=== PATIENT | female | born 1945 | race Caucasian/White ===

== ENCOUNTER 2018-04-22 03:30 | Inpatient (IN) | payer MEDICARE, OTHER ==
[2018-04-22 04:16] LABS: #Eosinphils 0.3 thou/uL (0.0-0.7); #Lymphocytes 2.9 thou/uL (1.20-3.40); #Monocytes 0.8 thou/uL (0.11-0.59); #Neutrophils 7.5 thou/uL (1.40-6.50); %Basophils 0.3 % (0.0-1.0); %Eosinophils 2.8 % (0.0-10.0); %Lymphocytes 24.9 % (21.0-51.0); %Monocytes 6.9 % (0.0-10.0); %Neutrophils 65.1 % (42.0-75.0); Hemoglobin 13.9 g/dL (12.0-16.0); Mean Corpuscular HGB CONC 33.9 g/dL (32.0-36.0); Mean Corpuscular Volume 88.4 fL (78.0-98.0); Mean Platelet Volume 7.7 fL (7.4-10.4); Platelet Count 274 thou/uL (130-400); RBC Distribution Width 12.1 % (11.5-14.5); Red Blood Cell (RBC) Count 4.63 mill/uL (4.20-5.40); White Blood Cell (WBC) Count 11.6 thou/uL (4.8-10.8)
[2018-04-22 04:35] LABS: ALT (SGPT) 19 U/L (8-55); AST (SGOT) 22 U/L (5-34); Albumin 3.6 g/dL (3.4-4.8); Alkaline Phosphatase 90 U/L (40-150); Anion Gap 19 mmol/L (10-20); BUN (Urea Nitrogen) 14 mg/dL (9.8-20.1); Bilirubin, Total 0.3 mg/dL (0.2-1.2); Calc. Creatinine Clearance 0 mL/min (70-130); Calcium 9.2 mg/dL (7.8-10.44); Carbon Dioxide 17 mmol/L (23-31); Chloride 106 mmol/L (98-107); Estimated GFR-MDRD 30; Globulin 3.5 g/dL (2.4-3.5); Glucose 179 mg/dL (83-110); Potassium 3.6 mmol/L (3.5-5.1); Protein, Total 7.1 g/dL (6.0-8.3); Sodium 138 mmol/L (136-145)
[2018-04-22 04:59] LABS: CKMB 2.5 ng/mL (0-6.6)
[2018-04-22 05:14] LABS: Bilirubin Negative (Negative); Blood, Urine Negative (Negative); Clarity CLOUDY (Clear); Glucose, Urine (Dipstick) Negative (Negative); Leukocyte Negative (Negative); Nitrite Negative (Negative); Protein, Urine (Dipstick) Negative (Neg-Trace); Specific Gravity, Urine 1.015 (1.002-1.036); Urobilinogen 0.2 mg/dL (0.2-1.0)
[2018-04-22] MEDS ORDERED: Clindamycin/D5W 600 mg/50 ml Premix Bag ONE (06:01)
[2018-04-22] MEDS ORDERED: Piperacillin/Tazobactam 3.375 GM in Sodium Chloride 0.9% 100 ML IVPB SCH (07:30)
[2018-04-22 07:36] VITALS: BMI 29.9
[2018-04-22 08:40] LABS: Critical Call Chem Troponin I RESULT DECREASING; Troponin I 1.127 ng/mL (< 0.028)
[2018-04-22] MEDS ORDERED: Acetaminophen 325 MG TAB PO PRN (09:14)
[2018-04-22] MEDS ORDERED: Ondansetron ODT 4 MG TAB PO PRN (09:14)
[2018-04-22] MEDS ORDERED: Lactated Ringer's 500 ML IV SCH (09:30)
[2018-04-22] MEDS ORDERED: Metamucil PACK PO SCH (09:30)
[2018-04-22 09:47] LABS: CKMB 5.4 ng/mL (0-6.6)
--- NOTE | 2018-04-22 09:51 | CT ---
PRELIMINARY REPORT/[facility]/EMERGENTY AFTER-HOURS PROCEDURE CT Head Without Contrast EXAM DATE/TIME: 04/22/2018 4:05 AM CLINICAL HISTORY: 72 years old, female; Injury or trauma and signs and symptoms; Fall; Initial encounter; Abrasion; Not specified; Dizziness; Patient HX: Patient brought in by ems for dizziness, started tonight when caitlin ent got up. Patient fell out of bed however no loss of consciousness nor did patient hit head. Patien t has had similar episodes in the past. TECHNIQUE: Axial computed tomography images of the head/brain without contrast. COMPARISON: No relevant prior studies available. FINDINGS: Brain: No intracranial hemorrhage. Left basal ganglia low attenuation/old lacunar infarct. Periventri cular and subcortical areas of low attenuation, probably related to chronic small vessel ischemic dis ease. Please note that these areas of low-attenuation may obscure small acute infarctions and MRI wou ld be more sensitive in the evaluation of acute infarction if indicated. Prominence of the sulci and ventricular system consistent with age related volume loss. Ventricles: No acute findings. Bones/joints: No acute fracture. Sinuses: Left frontal sinus opacification. Left maxillary sinus mucosal thickening. Mastoid air cells: No acute findings. No mastoid effusion. Soft tissues: No acute findings. IMPRESSION: No definite acute intracranial findings. Cerebral atrophy, probable small vessel ischemic disease and old lacunar infarct described above. Paranasal sinus disease. Thank you for allowing us to participate in the care of your patient. Dictated and Authenticated by: Marcelino Godfrey MD 04/22/2018 6:58 AM Central Time ([place] & [place]) FINAL REPORT EMERGENT AFTER HOURS NONCONTRAST CT HEAD: DATE: 04/22/2018. HISTORY: Dizziness. The patient fell out of bed. COMPARISON: 11/20/2012. FINDINGS: There are low-density foci seen adjacent to the head of the left caudate as well as in the adjacent l eft basal ganglia. There is associated ex vacuo dilatation of the anterior horn left lateral ventric le, and findings are likely related to remote lacunar infarctions involving the left basal ganglia. These areas of infarction were not present on the study in 2012. There are a few scattered low-density areas within the periventricular and subcortical white matter g reater in the right anterior frontal lobe centrum semiovale which are nonspecific but likely attribut able to chronic small-vessel ischemic changes which have also progressed from prior exam. There is n o evidence of a hemorrhage, acute infarction, mass effect, or midline shift. Mucosal thickening is p resent in the left maxillary antrum with opacification of the left frontal sinus which was noted on t he prior exam. No other interval change. IMPRESSION: 1. No acute intracranial abnormality demonstrated. 2. Findings likely attributable to remote lacunar infarctions in the left basal ganglia. 3. Chronic small-vessel ischemic changes. MRI would be a more sensitive study of choice for evaluat ion of a more acute infarction. 4. Mild cerebral volume loss. 5. Sinus disease. 6. Findings are in agreement with the preliminary report by [facility]. POS: [facility]
--- NOTE | 2018-04-22 10:06 | RAD ---
CHEST ONE VIEW: History: Chest pain. Comparison: 01-28-18 FINDINGS: Cardiac silhouette is magnified by projection. Pulmonary vasculature is unremarkable. Mediastinum is midline. No lobar consolidation or evidence of pneumothorax. Post-operative changes right shoulder. C ardiac monitor leads overlie the chest. IMPRESSION: No active cardiopulmonary abnormalities are demonstrated. POS: [facility]
[2018-04-22 10:37] LABS: Lactic Acid 2.9 mmol/L (0.5-2.2)
[2018-04-22 10:51] LABS: Troponin I 1.147 ng/mL (< 0.028)
--- NOTE | 2018-04-22 11:48 | RAD ---
LEFT FOOT 3 VIEWS: HISTORY: Fall. Left foot injury. Diabetic ulcer. FINDINGS: No gross Lisfranc malalignment. Reversal of the plantar arch on the lateral view. Osseous structure s severely demineralized. No displaced fractures or aggressive osseous destruction are apparent. IMPRESSION: 1. Severe chronic deformity including reversal of the plantar arch. No aggressive osseous destructi on is apparent. 2. Osteoporosis. POS: [facility]
--- NOTE | 2018-04-22 14:10 | CON ---
DATE OF CONSULTATION: REASON FOR CONSULTATION: Elevated troponin. PRIMARY ARCHITECTURAL ENGINEER: None. HISTORY OF PRESENT ILLNESS: Ms. Crowley is a 72-year-old woman, no previous history of underlying coronary artery disease. Risk factors include diabetes mellitus and hypertension. She recently states she awoke at 3:00 in the morning. When she teresa, she had a dizzy spell. She states she went down to the floor. She is on the floor for about 30 minutes. She had difficulty getting up. No chest pain, pressure, shortness of breath, or other associated symptoms. EMS was summoned. She was seen and evaluated in the emergency room, where a troponin was drawn. Troponin was elevated. She has no current symptoms suggesting angina. PAST MEDICAL HISTORY: Diabetes mellitus, hypertension, knee surgery, elbow surgery, appendectomy, hysterectomy, tonsillectomy, bipolar disorder. ALLERGIES: IBUPROFEN. HOME MEDICATIONS: None. SOCIAL HISTORY: No current tobacco or alcohol use. She is very limited from an ambulation standpoint. She has a decubitus ulcer present in addition to a diabetic foot ulcer. REVIEW OF SYMPTOMS: A 10-point review of systems is reviewed and as above, otherwise negative. PHYSICAL EXAMINATION: VITAL SIGNS: Blood pressure 150/65, pulse 82, temperature 96.5. GENERAL: Patient is a pleasant female, who is in no acute distress. The patient appears their stated age. NEUROLOGIC: The patient is alert and oriented x3 with no focal neurologic deficits. HEENT: Sclerae without icterus. Mouth has moist mucous membranes with normal pallor. NECK: No JVD. Carotid upstroke brisk. No bruits bilaterally. LUNGS: Clear to auscultation with unlabored respirations. BACK: No scoliosis or kyphosis. CARDIAC: Regular rate and rhythm with normal S1 and S2. No S3 or S4 noted. No significant rubs, murmurs, thrills, or gallops noted throughout the precordium. PMI is not displaced. There is no parasternal heave. ABDOMEN: Soft, nontender, nondistended. No peritoneal signs present. No hepatosplenomegaly. No abnormal striae. EXTREMITIES: 2+ femoral and 2+ dorsalis pedis pulses. No cyanosis, clubbing, or edema. Left lower extremity with a diabetic foot ulcer, although appropriate pulses present. SKIN: No gross abnormalities. IMAGING STUDIES: EKG showed normal sinus rhythm, ST-T wave changes suggesting LVH. PERTINENT LABORATORY DATA: Peak troponin 1.147. C-reactive protein 0.64. Lactic acid level 3.6, which is down to 2.9. IMPRESSION: 1. Elevated troponin. 2. Dizziness. 3. Diabetic foot ulcer. 4. Diabetes mellitus. 5. Hypertension. RECOMMENDATIONS: Certainly complicated situation. This does not appear to be a situation where the patient has had unstable angina. The patient did have increased heart rate noted in the emergency room and we will investigate. I discussed proceeding with coronary angiography versus noninvasive stress study versus medical therapy. I discussed coronary angiography in full detail. Risks include, but not limited to . All questions were answered the patient would like to discuss with her on how they would like to proceed. If she did in fact have atrial fibrillation or significant tachycardia with heart rate of 160, this is likely due to underlying demand ischemia. She is currently on vancomycin for her foot ulcer. Job ID: [id number]
[2018-04-22 15:56] LABS: Lactic Acid 2.4 mmol/L (0.5-2.2)
--- NOTE | 2018-04-22 16:01 | HP ---
PRIMARY CARE PHYSICIAN: Bola Rutherford MD CHIEF COMPLAINT/REASON FOR ADMISSION: "I felt dizzy." HISTORY OF PRESENT ILLNESS: Ms. Crowley is a 72-year-old female, with a history of type 2 diabetes with diabetic polyneuropathy, as well as essential hypertension and bipolar disorder, presenting to the hospital and transferred from her home in the earlier hours of this morning. She has been felling well at home, no chest pain, no fever, no cough or congestion, "eating wonderfully." She woke at 3:00 a.m. and had to go to the bathroom. She became dizzy and fell. She believe she may have passed out but is unsure. She noticed that her bottom this morning is very sore from falling. Her was unable to get her up. EMS was called. Initially, the patient declined transport to the hospital, however, she sat on the side of her bed with the ambulance crew waiting, she noted the room began spinning. She has had similar symptoms in the past, which have been self-limited. She accepted transportation and was brought to the emergency department. In the emergency department, laboratory evaluation was performed, she was noted to have a mild metabolic acidosis with a bicarbonate of 17, glucose was 179, lactic acid elevated at 3.6. Initial troponin abnormal at 1.198, and C-reactive protein also slightly elevated at 0.64. She was subsequently admitted to the telemetry floor was additional evaluation and care. Additionally, she underwent CT scanning of the brain, chest x-ray and foot x-ray. Final reports are pending, the data available for review indicates no significant pathology on these studies. At the time of my evaluation, Ms. Crowley states she is feeling much better. Her dizziness had resolved. She denies any chest pain or chest pressure at any time. She states her will bring her medications in a little while. When asked about her usual activities of daily living, she uses a walker at home, is able to toilet independently. She uses a shower chair. Her does the cooking and arranges her medications. She has a history of a chronic diabetic foot ulcer, followed by Dr. Virk. She saw Dr. Virk about 2 week ago, he cleaned and dressed the wound. The wound has been present from years. It has been stable. She sees Dr. Virk about every 6 weeks. She does state she does not drink enough water at home, but has had no difficulty with food. No nausea, vomiting, or other associated symptomatology whatsoever. PAST MEDICAL HISTORY: 1. Type 2 diabetes with diabetic peripheral neuropathy. 2. Chronic constipation, on daily Metamucil. 3. Essential hypertension. 4. Bipolar disorder. No history of heart disease, stroke, or other acute symptomatology. PAST SURGICAL HISTORY: 1. Right elbow surgery. 2. Left knee total joint replacement. 3. Appendectomy. 4. Hysterectomy. 5. Tonsillectomy. SOCIAL HISTORY: The patient does not use alcohol, illicit drugs, no tobacco use currently or in the past. She lives at home with her . She uses a walker for ambulation. FAMILY HISTORY: The patient is adopted. She does have some information about her father's parents, which will be her paternal grandmother, with a history of heart condition, not other specified. MEDICATIONS: At this time, she is unsure of her medications, her will bring them. She does not currently have an aspirin regimen. ALLERGIES: SIDE EFFECTS REPORTS TO IBUPROFEN, THOUGH THE PATIENT IS UNCLEAR ON WHAT THOSE WERE, THIS HAPPENED IN THE DISTANT PAST. REVIEW OF SYSTEMS: Complete review of system reviewed, addressed, negative except otherwise as mentioned. PHYSICAL EXAMINATION: VITAL SIGNS: In the ER, blood pressure 149/60, pulse 80, respiratory rate 16, temperature 97.4, and saturating 98% on room air. Current vital signs on the telemetry floor; blood pressure 140/72, heart rate 79, temperature 96.2, respiratory rate 18, and saturating 99% on room air. GENERAL: Pleasant female, sitting up, able to give a fair history. HEENT: Eyes are without conjunctival injection or scleral icterus. Extraocular movements are intact. Oropharynx is clear. No erythema. No exudate. NECK: Supple. Full range of motion. No jugular venous distention. HEART: Regular rate and rhythm. No distinct murmur, rub, or gallop. LUNGS: Clear to auscultation bilaterally. ABDOMEN: Soft, nontender, and nondistended. EXTREMITIES: Without clubbing, cyanosis, or edema. Hammertoe is present bilateral feet. SKIN: Notable for onychomycosis in bilateral nailbeds of the feet. Left foot plantar surface silver dollar size ulceration with eschar. No surrounding erythema or warmth. Skin with diffuse dryness. MUSCULOSKELETAL: Foot deformity/hammertoe as above. NEUROLOGIC: She is able to move all extremities bilaterally to command. No focal deficit. She does have decreased proprioception of her feet on sensory exam. LABORATORY/DATA REVIEW: I personally reviewed her EKG, which was at 3:40 this morning, normal sinus rhythm, 84 beats per minute, mild left ventricular hypertrophy, possible previous inferior infarct noted. No ST/T-wave changes. I personally reviewed her chest x-ray. No distinct effusion, infiltrate. Mildly elevated right hemidiaphragm. CT of brain noncontrast, report is pending, no obvious acute intracranial abnormality present. Plain x-rays of the foot were also taken, again no distinct abnormality. Serum carbon dioxide level is 17, creatinine is 1.6, BUN of 14, glucose 179. CRP 0.64. Troponin 1.198. Lactic acid 3.6. White blood cell count minimally elevated at 11.6, hemoglobin 13.9, hematocrit 40.9, platelet count of 274. Urinalysis reviewed, unremarkable. IMPRESSION: 1. Abnormal cardiac biomarker, compatible with non-ST elevation myocardial infarction. 2. Background history of type 2 diabetes with diabetic polyneuropathy. 3. Essential hypertension. 4. Bipolar disorder. 5. Chronic constipation. 6. Chronic stable left plantar ulceration, no evidence of acute change or inflammatory source. PLAN/RECOMMENDATIONS: 1. Cardiology - echo, cardiac biomarkers. Add daily aspirin to regimen. Unsure at this time of her home medication list, thus I am unsure if she takes a statin. We will initiate statin therapy and adjust once this additional information is available. Check 2D echocardiogram. Request Cardiology input. The patient has already eaten breakfast this morning. Generally, the patient appears very stable. 2. Endocrine - correctional insulin sliding scale, await her home medicine list. 3. Initiate walking program to prevent deconditioning during hospital stay. 4. Infectious Disease - repeat labs this afternoon to include repeat lactic acid level and basic metabolic panel. Metabolic acidosis noted, though without clinical signs or symptoms pointing to distinct infection. Empiric vancomycin and Zosyn were provided from the emergency department and blood cultures were sent. If blood cultures remain negative over the next 12 to 24 hours, discontinue antibiotic therapy altogether. That infectious source of chronic plantar diabetic wound. Repeat labs ordered at 3:00 p.m. to recheck lactic acid level as well as basic metabolic panel. 5. DVT prophylaxis - Lovenox. 6. Reconciliation of home medications from list available. 7. Given her age and comorbidities, she is at high risk. Expectation for hospital stay to cross 2 midnights, admit to full inpatient status. Further recommendations pending hospital course. Job ID: [id number]
[2018-04-22 16:02] LABS: Anion Gap 16 mmol/L (10-20); BUN (Urea Nitrogen) 13 mg/dL (9.8-20.1); Calc. Creatinine Clearance 50 mL/min (70-130); Calcium 9.2 mg/dL (7.8-10.44); Carbon Dioxide 19 mmol/L (23-31); Chloride 108 mmol/L (98-107); Estimated GFR-MDRD 35; Glucose 161 mg/dL (83-110); Potassium 3.9 mmol/L (3.5-5.1); Sodium 139 mmol/L (136-145)
[2018-04-22 16:07] LABS: Troponin I 1.197 ng/mL (< 0.028)
[2018-04-22] MEDS ORDERED: Communication Order-Pharmacy FS SCH (17:30)
[2018-04-22] MEDS: Sodium Chloride 0.9% 1,000 ML IV SCH (18:04)
[2018-04-22] MEDS: Donepezil HCl 5 MG TAB PO SCH (20:58)
[2018-04-22] MEDS: Metoprolol Tartrate 25 MG TAB PO SCH (20:58)
[2018-04-22] MEDS: risperiDONE 0.25 MG TAB PO SCH (20:58)
[2018-04-22] MEDS: Atorvastatin Calcium 40 MG TAB PO SCH (20:58)
[2018-04-22] MEDS: traZODone HCl 150 MG TAB PO SCH (20:59)
[2018-04-23] MEDS: Sodium Chloride 0.9% 1,000 ML IV SCH ×5 (03:34→21:28)
[2018-04-23] MEDS: Levothyroxine Sodium 125 MCG TAB PO SCH (05:25)
[2018-04-23] MEDS: Amlodipine 5 MG TAB PO SCH (05:25)
[2018-04-23] MEDS: Oxybutynin 5 MG TAB PO SCH (05:26)
[2018-04-23] MEDS: Metoprolol Tartrate 25 MG TAB PO SCH ×2 (05:26→21:20)
[2018-04-23] MEDS: Aspirin 81 mg Enteric Coated Tablet PO SCH (05:26)
[2018-04-23 06:04] LABS: Lactic Acid 2.1 mmol/L (0.5-2.2)
[2018-04-23 07:26] LABS: #Eosinphils 0.3 thou/uL (0.0-0.7); #Lymphocytes 1.9 thou/uL (1.20-3.40); #Neutrophils 7.6 thou/uL (1.40-6.50); %Basophils 0.4 % (0.0-1.0); %Eosinophils 2.4 % (0.0-10.0); %Lymphocytes 17.6 % (21.0-51.0); %Neutrophils 70.6 % (42.0-75.0); Mean Corpuscular HGB CONC 32.9 g/dL (32.0-36.0); Mean Corpuscular Hemoglobin 28.9 pg (27.0-31.0); Mean Corpuscular Volume 87.8 fL (78.0-98.0); Mean Platelet Volume 8.2 fL (7.4-10.4); Platelet Count 250 thou/uL (130-400); RBC Distribution Width 12.3 % (11.5-14.5); Red Blood Cell (RBC) Count 4.52 mill/uL (4.20-5.40); White Blood Cell (WBC) Count 10.8 thou/uL (4.8-10.8)
[2018-04-23 07:34] LABS: ALT (SGPT) 22 U/L (8-55); AST (SGOT) 32 U/L (5-34); Albumin 3.3 g/dL (3.4-4.8); Alkaline Phosphatase 84 U/L (40-150); Anion Gap 15 mmol/L (10-20); BUN (Urea Nitrogen) 13 mg/dL (9.8-20.1); Bilirubin, Total 0.5 mg/dL (0.2-1.2); Calc. Creatinine Clearance 57 mL/min (70-130); Calcium 8.9 mg/dL (7.8-10.44); Carbon Dioxide 19 mmol/L (23-31); Chloride 108 mmol/L (98-107); Cholesterol 151 mg/dl (< 200 Desired); Estimated GFR-MDRD 41; Globulin 3.1 g/dL (2.4-3.5); Glucose 132 mg/dL (83-110); HDL Cholesterol 50 mg/dL (>60 Neg Risk); LDL Cholesterol, Calculated 81 mg/dL; Potassium 3.9 mmol/L (3.5-5.1); Protein, Total 6.4 g/dL (6.0-8.3); Sodium 138 mmol/L (136-145); Triglycerides 99 mg/dL (Less than 150)
[2018-04-23] MEDS: Metamucil PACK PO SCH (08:17)
[2018-04-23] MEDS ORDERED: Enoxaparin Sodium 40 MG/0.4 ML SYRINGE SC SCH (09:00)
[2018-04-23] MEDS ORDERED: Vancomycin HCl 1 GM in Premix Bag 1 BAG IVPB SCH (09:00)
[2018-04-23] MEDS ORDERED: VANCOMYCIN IVPB PRN (09:05)
[2018-04-23] MEDS ORDERED: Nitroglycerin 100MG/250ML BOT 0 ML ONE (09:41)
[2018-04-23] MEDS ORDERED: Heparin 10,000 UNITS/1 ML VIAL ONE (09:41)
[2018-04-23] MEDS ORDERED: Verapamil 5 MG/2 ML VIAL ONE (09:41)
[2018-04-23] MEDS ORDERED: Vancomycin HCl 1.5 GM in Sodium Chloride 0.9% 250 ML 300 ML IVPB SCH ×2 (10:00→22:00)
[2018-04-23] MEDS ORDERED: Nitroglycerin 0.4 MG TAB (25 Tab Bottle) SL PRN (10:47)
[2018-04-23] MEDS ORDERED: traMADol HCl 50 MG TAB PO PRN (10:47)
[2018-04-23] MEDS ORDERED: Acetaminophen/Codeine 30-300mg Tablet PO PRN ×2 (10:47)
[2018-04-23] MEDS ORDERED: hydrALAZINE 20 MG/ML VIAL ONE (10:49)
[2018-04-23] MEDS ORDERED: Sodium Chloride 0.9% 200 ML IV SCH (11:00)
[2018-04-23] MEDS ORDERED: Iopamidol 370 76% 100 ML VIAL ONE (12:12)
--- NOTE | 2018-04-23 13:02 | PDOC.PN ---
- Subjective Encounter Start Date: 04/23/18 Encounter Start Time: 10:00 Subjective: no chest pain or sob -: is going for cath now - Objective Resuscitation Status - Order Detail: 04/22/18 09:14 Resuscitation Status Routine Resuscitation Status: FULL: Full Resuscitation Discussed with: lindsay SON Reviewed: Yes Vital Signs & Weight: Vital Signs (12 hours) Temp Pulse Resp BP BP Pulse Ox 04/23/18 07:35 98 F 71 20 187/76 H 98 04/23/18 05:25 80 183/74 H 04/23/18 04:00 97.7 F 80 16 183/74 H 95 Weight Admit Weight 197 lb Weight 194 lb 12.8 oz I&O: 04/22/18 04/23/18 04/24/18 06:59 06:59 06:59 Intake Total 3278 Output Total 2750 Balance 528 Result Diagrams: 04/23/18 06:45 04/23/18 06:45 Additional Labs: Accuchecks 04/23/18 04/22/18 04/22/18 05:12 20:24 17:01 POC Glucose 133 H 109 125 H Phys Exam - Physical Examination HEENT: PERRLA, moist MMs Neck: no JVD, supple Respiratory: no wheezing, no rales Cardiovascular: RRR, no significant murmur Gastrointestinal: soft, non-tender, positive bowel sounds Musculoskeletal: no edema, pulses present Neurological: non-focal, moves all 4 limbs Psychiatric: normal affect, A&O x 3 Dx/Plan (1) Sepsis Code(s): A41.9 - SEPSIS, UNSPECIFIED ORGANISM Status: Acute Qualifiers: Sepsis type: sepsis due to unspecified organism Qualified Code(s): A41.9 - Sepsis, unspecified organism (2) Bacteremia Code(s): R78.81 - BACTEREMIA Status: Suspected (3) UTI (urinary tract infection) Status: Acute Qualifiers: Urinary tract infection type: acute cystitis Hematuria presence: without hematuria Qualified Code(s): N30.00 - Acute cystitis without hematuria (4) Demand ischemia of myocardium Code(s): I24.8 - OTHER FORMS OF ACUTE ISCHEMIC HEART DISEASE Status: Acute (5) DM type 2 (diabetes mellitus, type 2) Status: Chronic Qualifiers: Diabetes mellitus fdc insulin use: 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 Diabetes mellitus complication status: with unspecified complications Qualified Code(s) : E11.8 - Type 2 diabetes mellitus with unspecified complications (6) LIBORIO (acute kidney injury) Code(s): N17.9 - ACUTE KIDNEY FAILURE, UNSPECIFIED Status: Acute (7) Metabolic acidosis Code(s): E87.2 - ACIDOSIS Status: Acute (8) chronic left foot diabetic ulcer Status: Chronic (9) h/o old cva Status: Chronic Comment: old lacunar infarct left basal ganglia (10) Bipolar disease, chronic Code(s): F31.9 - BIPOLAR DISORDER, UNSPECIFIED Status: Chronic (11) Dementia Code(s): F03.90 - UNSPECIFIED DEMENTIA WITHOUT BEHAVIORAL DISTURBANCE Status: Chronic Qualifiers: Dementia type: Alzheimer's disease Alzheimer's disease onset: unspecified onset Dementia behavioral disturbance: without behavioral disturbance Qualified Code(s): G30.9 - Alzheimer's disease, unspecified; F02.80 - Dementia in other diseases classified elsewhere without behavioral disturbance - Plan for cath today -: await full blood cs, 1 of 2 is growing gm+cocci ?contamination -: is on vanc and levaquin -: continue norvasc, lopressor, synthroid, asp, lipitor and aricept -: to ambulate as tolerated, wound care for the foot ulcer * . Review of Systems - Medications/Allergies Allergies/Adverse Reactions: Allergies Allergy/AdvReac Type Severity Reaction Status Date / Time No Known Allergies Allergy Verified 04/23/18 03:56 Medications: Current Medications Acetaminophen (Tylenol) 650 mg PO Q4H PRN PRN Reason: Headache/Fever/Mild Pain (1-3) Acetaminophen/Codeine Phosphate (Tylenol #3) 1 tab PO Q4H PRN PRN Reason: Mild Pain (1-3) Acetaminophen/Codeine Phosphate (Tylenol #3) 2 tab PO Q4H PRN PRN Reason: Moderate Pain (4-6) Amlodipine Besylate (Norvasc) 5 mg PO DAILY [facility] Last Admin: 04/23/18 05:25 Dose: 5 mg Aspirin (Ecotrin) 81 mg PO DAILY [facility] Last Admin: 04/23/18 05:26 Dose: 81 mg Atorvastatin Calcium (Lipitor) 40 mg PO HS [facility] Last Admin: 04/22/18 20:58 Dose: 40 mg Cholecalciferol (Vitamin D3) 4,000 units PO 1200 [facility] Donepezil HCl (Aricept) 5 mg PO HS [facility] Last Admin: 04/22/18 20:58 Dose: 5 mg Estrogens Conjugated (Premarin) 0.625 mg PO DAILY [facility] Last Admin: 04/23/18 05:26 Dose: 0.625 mg Sodium Chloride (Normal Saline 0.9%) 1,000 mls @ 100 mls/hr IV .Q10H [facility] Last Admin: 04/23/18 03:34 Dose: 1,000 mls Levofloxacin 500 mg/ Device 100 mls @ 100 mls/hr IVPB 0900 [facility] Vancomycin HCl 1.5 gm/ Sodium (Chloride) 300 mls @ 200 mls/hr IVPB 1000 [facility] Sodium Chloride (Normal Saline 0.9%) 1,000 mls @ 125 mls/hr IV .Q8H [facility] Stop: 04/23/18 19:01 Sodium Chloride (Normal Saline 0.9%) 200 mls @ 0 mls/hr IV ONE [facility] Stop: 04/23/18 23:00 Levothyroxine Sodium (Synthroid) 125 mcg PO 0600 [facility] Last Admin: 04/23/18 05:25 Dose: 125 mcg Metoprolol Tartrate (Lopressor) 12.5 mg PO BID [facility] Last Admin: 04/23/18 05:26 Dose: 12.5 mg Miscellaneous Information (Communication Order-Pharmacy) 0 each FS ONE [facility] Stop: 04/23/18 17:31 Miscellaneous Medication (Pharmacy To Dose) 1 each IVPB PRN PRN PRN Reason: Pharmacy to dose Nitroglycerin (Nitrostat) 0.4 mg SL Q5MIN PRN PRN Reason: Chest Pain Ondansetron HCl (Zofran Odt) 4 mg PO Q6H PRN PRN Reason: Nausea/Vomiting Oxybutynin Chloride (Ditropan) 5 mg PO DAILY [facility] Last Admin: 04/23/18 05:26 Dose: 5 mg Psyllium Hydrophilic Mucilloid (Metamucil) 1 pk PO DAILY [facility] Last Admin: 04/23/18 08:17 Dose: Not Given Risperidone (Risperidone) 0.5 mg PO HS [facility] Last Admin: 04/22/18 20:58 Dose: 0.5 mg Sodium Chloride (Flush - Normal Saline) 10 ml IVF Q12HR [facility] Last Admin: 04/22/18 20:59 Dose: Not Given Sodium Chloride (Flush - Normal Saline) 10 ml IVF PRN PRN PRN Reason: Saline Flush Tramadol HCl (Ultram) 50 mg PO Q6H PRN PRN Reason: Moderate Pain (4-6) Trazodone HCl (Desyrel) 150 mg PO HS [facility] Last Admin: 04/22/18 20:59 Dose: 150 mg
[2018-04-23] MEDS: risperiDONE 0.25 MG TAB PO SCH (21:19)
[2018-04-23] MEDS: Atorvastatin Calcium 40 MG TAB PO SCH (21:19)
[2018-04-23] MEDS: Donepezil HCl 5 MG TAB PO SCH (21:20)
[2018-04-23] MEDS: traZODone HCl 150 MG TAB PO SCH (21:20)
[2018-04-24] MEDS: Levothyroxine Sodium 125 MCG TAB PO SCH (05:13)
[2018-04-24] MEDS: Aspirin 81 mg Enteric Coated Tablet PO SCH (08:21)
[2018-04-24] MEDS: Amlodipine 5 MG TAB PO SCH (08:21)
[2018-04-24] MEDS: Oxybutynin 5 MG TAB PO SCH (08:22)
[2018-04-24] MEDS: Metoprolol Tartrate 25 MG TAB PO SCH (08:22)
[2018-04-24] MEDS: Metamucil PACK PO SCH (10:20)
[2018-04-24] MEDS: Sodium Chloride 0.9% 1,000 ML IV SCH (10:20)
--- NOTE | 2018-04-24 10:32 | PDOC.PN ---
- Subjective Encounter Start Date: 04/24/18 Encounter Start Time: 08:30 Subjective: no sob or chest pain -: feels good - Objective Resuscitation Status - Order Detail: 04/22/18 09:14 Resuscitation Status Routine Resuscitation Status: FULL: Full Resuscitation Discussed with: lindsay SON Reviewed: Yes Vital Signs & Weight: Vital Signs (12 hours) Temp Pulse Resp BP Pulse Ox 04/24/18 08:22 95 04/24/18 08:20 97.8 F 68 18 173/72 H 95 04/24/18 04:00 97.7 F 80 16 160/71 H 95 Weight Admit Weight 197 lb Weight 201 lb 12.8 oz I&O: 04/23/18 04/24/18 04/25/18 06:59 06:59 06:59 Intake Total 3278 1200 Output Total 2750 Balance 528 1200 Result Diagrams: 04/23/18 06:45 04/23/18 06:45 Additional Labs: Accuchecks 04/24/18 04/23/18 04/23/18 05:29 20:48 16:28 POC Glucose 119 H 148 H 100 Phys Exam - Physical Examination HEENT: PERRLA, moist MMs Neck: no JVD, supple Respiratory: no wheezing, no rales Cardiovascular: RRR, no significant murmur Gastrointestinal: soft, non-tender, positive bowel sounds Musculoskeletal: no edema, pulses present Neurological: non-focal, moves all 4 limbs Psychiatric: A&O x 3 Dx/Plan (1) Sepsis Code(s): A41.9 - SEPSIS, UNSPECIFIED ORGANISM Status: Acute Qualifiers: Sepsis type: Escherichia coli Qualified Code(s): A41.51 - Sepsis due to Escherichia coli [E. 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 insulin use: without chief transfer and pumphouse operator use Diabetes mellitus complication status: with unspecified complications Qualified Code(s) : E11.8 - Type 2 diabetes mellitus with unspecified complications (5) LIBORIO (acute kidney injury) Code(s): N17.9 - ACUTE KIDNEY FAILURE, UNSPECIFIED Status: Resolved (6) Metabolic acidosis Code(s): E87.2 - ACIDOSIS Status: Resolved (7) chronic left foot diabetic ulcer Status: Chronic (8) h/o old cva Status: Chronic Comment: old lacunar infarct left basal ganglia (9) Bipolar disease, chronic Code(s): F31.9 - BIPOLAR DISORDER, UNSPECIFIED Status: Chronic (10) Dementia Code(s): F03.90 - UNSPECIFIED DEMENTIA WITHOUT BEHAVIORAL DISTURBANCE Status: Chronic Qualifiers: Dementia type: Alzheimer's disease Alzheimer's disease onset: unspecified onset Dementia behavioral disturbance: without behavioral disturbance Qualified Code(s): G30.9 - Alzheimer's disease, unspecified; F02.80 - Dementia in other diseases classified elsewhere without behavioral disturbance - Plan hemostable -: cipro x 4 days -: has refused PT inhouse and as outpt, wants to go home -: asp, toprol, lisinopril, to f/u with PCP in 1 week * .
[2018-04-24 12:19] VITALS: BP 183/77; TEMP 98.2
--- NOTE | 2018-04-24 13:34 | DIS ---
DATE OF ADMISSION: 04/22/2018 DATE OF DISCHARGE: 04/24/2018 DISCHARGE DISPOSITION: To home. PRIMARY DISCHARGE DIAGNOSES: Sepsis with urinary tract infection, resolving; demand ischemia; [id number] coronary artery disease on cardiac cath. 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 PROCEDURES DONE DURING HOSPITALIZATION: Left foot three-view x-ray done shows chronic deformity including reversal of the plantar arch. No aggressive osseous destruction was seen. No signs of osteoporosis. CT brain without contrast done showed no acute intracranial abnormality, the findings of remote lacunar infarct in the left basal ganglia. Cardiac cath done by Dr. Noguera on 04/22/2018 showed [id number] coronary artery disease. The patient had 20% stenosis in proximal LAD, first diagonal had ostial 50% stenosis, left circumflex and RCA and left main were within normal limits with no stenosis. Chest x-ray done on the day of admission showed no acute cardiopulmonary abnormality. Urine culture grew E. coli sensitive to all antibiotics except cefoxitin. Discharge BUN and creatinine; 13 and 1.28. Total cholesterol 151, LDL 81, HDL 50, triglycerides 99. Indeterminate troponin peaking up to 1.19, CK-MB 5.4. CRP was 0.6. INPATIENT CONSULT: Dr. Noguera for Cardiology. DISCHARGE PLAN: The patient is to follow up with primary care physician in 1 week. DISCHARGE MEDICATIONS: 1. Norvasc 5 mg p.o. daily. 2. Vitamin D3 4000 units p.o. daily. 3. Donepezil 5 mg p.o. at bedtime. 4. Levothyroxine 125 mcg p.o. daily. 5. Lisinopril 10 mg p.o. at bedtime. 6. Oxybutynin 5 mg p.o. daily. 7. Risperdal 0.5 mg p.o. at bedtime. 8. Trazodone 150 mg p.o. at bedtime. 9. Aspirin 81 mg p.o. daily. 10. Lipitor 40 mg p.o. at bedtime. 11. Ciprofloxacin 500 mg p.o. twice daily for 4 days. 12. Toprol-XL 25 mg p.o. daily. 13. MiraLax 17 g p.o. daily. ALLERGIES: NO KNOWN DRUG ALLERGIES. BRIEF COURSE DURING HOSPITALIZATION: The patient initially got admitted on the with complaints of feeling dizzy. Her initial workup revealed indeterminate troponin with urinary tract infection and suspicion for sepsis. She had temperatures of 96.2 degrees on arrival as well. The patient was admitted to telemetry. She has had consultation with Dr. Noguera for Cardiology. She has had cardiac catheterization done, which showed [id number] coronary artery disease for medical management. The patient was pancultured and was placed on broad-spectrum IV antibiotics. This has been transitioned to Cipro based on urine culture growing E. coli sensitive to most antibiotics except cefoxitin. The patient did not have any chest pain or palpitation. She refused home health with physical therapy or even PT evaluation in the hospital and would like to go home with her . Please see a [id number] documentation for the day of discharge on [facility]. Job ID: [id number]
== END 2018-04-24 12:56 | disposition home or self-care (01) | DRG 872 ==
LOC: ERS 03:30 → 2NO 05:17
PROVIDERS: ADMIT Internal Medicine; ATTEND Internal Medicine
PROC: 4A023N7 Measurement of Cardiac Sampling and Pressure, Left Heart, Percutaneous Approach (ICD-10-PCS; principal; 2018-04-23)
PROC: B2111ZZ Fluoroscopy of Multiple Coronary Arteries using Low Osmolar Contrast (ICD-10-PCS; 2018-04-23)
PROC: B2151ZZ Fluoroscopy of Left Heart using Low Osmolar Contrast (ICD-10-PCS; 2018-04-23)
DX: A41.51 Sepsis due to Escherichia coli [E. coli] (principal); N17.9 Acute kidney failure, unspecified; E87.2 Acidosis; I24.8 Other forms of acute ischemic heart disease; N30.00 Acute cystitis without hematuria; E11.42 Type 2 diabetes mellitus with diabetic polyneuropathy; I10 Essential (primary) hypertension; F31.9 Bipolar disorder, unspecified; E11.621 Type 2 diabetes mellitus with foot ulcer; L97.529 Non-pressure chronic ulcer of other part of left foot with unspecified severity; K59.09 Other constipation; I25.10 Atherosclerotic heart disease of native coronary artery without angina pectoris; G30.9 Alzheimer's disease, unspecified; F02.80 Dementia in other diseases classified elsewhere, unspecified severity, without behavioral disturbance, psychotic disturbance, mood disturbance, and anxiety; Z86.73 Personal history of transient ischemic attack (TIA), and cerebral infarction without residual deficits; Z79.4 Long term (current) use of insulin; Z96.652 Presence of left artificial knee joint
CPT/HCPCS: 36415; 36416; 70450; 71045; 76942; 80053; 80061; 81003; 82553; 83605; 84484; 85025; 85652; 86140; 87040; 87077; 87086; 87149; 87186; 90471; 90662; 93005; 93010; 93306; 93458; 96365; 96368; C1760; C1769; G0008; G8978-GP-CN; G8979-GP-CL; J0360; J1644; J1956; J2543; J3370; J3490; J7050

== ENCOUNTER 2018-08-05 19:10 | Emergency (ER) | payer MEDICARE, OTHER ==
[2018-08-05] MEDS ORDERED: Nitroglycerin 2% Ointment 1 INCH/1 GM Packet ONE (19:37)
--- NOTE | 2018-08-05 21:48 | CT ---
CT cervical spine noncontrast HISTORY: Fall. Neck injury. FINDINGS: Vertebral body heights are maintained. There is multilevel disc space narrowing and osteoph ytosis. Central canal stenosis is most pronounced at the C5-6 level. Minimal degenerative spondylolisthesis at the cervicothoracic junction. No acute fracture or dislocation are apparent. IMPRESSION: Prominent degenerative changes. No acute osseous abnormalities are demonstrated.
--- NOTE | 2018-08-05 21:51 | CT ---
CT thoracic spine noncontrast HISTORY: Fall. Back injury. FINDINGS: Vertebral body heights and alignment are maintained. Disc space narrowing at each level. Mu ltilevel gas disc phenomenon. Moderate osteophytosis throughout the vertebral bodies and facets. No acute fracture or dislocation are apparent. IMPRESSION: Degenerative changes. No evidence of fracture.
--- NOTE | 2018-08-05 21:53 | CT ---
CT lumbar spine noncontrast HISTORY: Fall. Back injury. FINDINGS: Vertebral body heights and AP alignment are maintained. Rightward convex rotatory scoliotic curvature. Disc space narrowing and prominent osteophytosis at each level. No acute fracture or dislocation are apparent. Herniation at the L4-5 disc posteriorly and leftward into the neural forame n and superiorly into the central canal. Partial fusion across the L3-4 disc space. IMPRESSION: No acute osseous abnormalities are demonstrated. Prominent degenerative changes. Disc herniation at the L4-5 level most greatly affecting the left L4 nerve root.
--- NOTE | 2018-08-05 21:54 | CT ---
CT PELVIS 08/05/18 PROVIDED CLINICAL HISTORY: Pain, status post fall. FINDINGS: There is no evidence for fracture. Alignment appears anatomic. Joint spaces appear preserved. No evid ence for hip joint effusion. The regional soft tissues demonstrate no evidence for an acute abnormali ty. IMPRESSION: No evidence for fracture. POS: DEON
== END 2018-08-06 01:10 | disposition home or self-care (01) ==
LOC: ERS 19:10
DX: M54.5 Low back pain (principal); E11.9 Type 2 diabetes mellitus without complications; I10 Essential (primary) hypertension; F31.9 Bipolar disorder, unspecified; W19.XXXA Unspecified fall, initial encounter
CPT/HCPCS: 72125; 72128; 72131; 72192

== ENCOUNTER 2018-09-24 16:59 | Inpatient (IN) | payer MEDICARE, OTHER ==
[2018-09-24 20:10] LABS: #Basophils 0.1 thou/uL (0.0-0.2); #Eosinphils 0.1 thou/uL (0.0-0.7); #Lymphocytes 2.3 thou/uL (1.20-3.40); #Monocytes 1.2 thou/uL (0.11-0.59); #Neutrophils 12.1 thou/uL (1.40-6.50); %Basophils 0.4 % (0.0-1.0); %Eosinophils 0.5 % (0.0-10.0); %Lymphocytes 14.5 % (21.0-51.0); %Monocytes 7.4 % (0.0-10.0); %Neutrophils 77.2 % (42.0-75.0); Hemoglobin 12.9 g/dL (12.0-16.0); Mean Corpuscular HGB CONC 33.7 g/dL (32.0-36.0); Mean Corpuscular Hemoglobin 31.1 pg (27.0-31.0); Mean Corpuscular Volume 92.3 fL (78.0-98.0); Mean Platelet Volume 7.3 fL (7.4-10.4); Platelet Count 233 thou/uL (130-400); RBC Distribution Width 13.2 % (11.5-14.5); Red Blood Cell (RBC) Count 4.14 mill/uL (4.20-5.40); White Blood Cell (WBC) Count 15.7 thou/uL (4.8-10.8)
[2018-09-24 20:39] LABS: ALT (SGPT) 13 U/L (8-55); AST (SGOT) 16 U/L (5-34); Acetaminophen Less than 6.0 mcg/mL (10.0-30.0); Albumin 3.7 g/dL (3.4-4.8); Alcohol Less than 10 mg/dL (Less than 10); Alkaline Phosphatase 78 U/L (40-150); Anion Gap 16 mmol/L (10-20); BUN (Urea Nitrogen) 15 mg/dL (9.8-20.1); Bilirubin, Total 0.7 mg/dL (0.2-1.2); CK (CPK) 144 U/L (29-168); Calc. Creatinine Clearance 0 mL/min (70-130); Calcium 9.5 mg/dL (7.8-10.44); Carbon Dioxide 21 mmol/L (23-31); Chloride 105 mmol/L (98-107); Estimated GFR-MDRD 33; Globulin 3.4 g/dL (2.4-3.5); Glucose 127 mg/dL (83-110); Magnesium 1.7 mg/dL (1.6-2.6); Potassium 4.2 mmol/L (3.5-5.1); Protein, Total 7.1 g/dL (6.0-8.3); Salicylate Less than 8.0 mg/dL (15.0-30.0)
[2018-09-24 20:52] LABS: Sodium 138 mmol/L (136-145)
[2018-09-24 23:08] LABS: Bilirubin Small (Negative); Blood, Urine Negative (Negative); Clarity CLOUDY (Clear); Glucose, Urine (Dipstick) Negative (Negative); Leukocyte Trace (Negative); Nitrite Positive (Negative); Protein, Urine (Dipstick) Trace mg/dL (Neg-Trace); Specific Gravity, Urine 1.021 (1.002-1.036); Urobilinogen 0.2 mg/dL (0.2-1.0)
[2018-09-24 23:09] LABS: RBC/HPF 0-3 HPF (0-3)
[2018-09-24 23:12] LABS: Pathc Cast-AUWi Flag 3.94 (0-2.49)
[2018-09-24 23:16] LABS: Amphetamine Not Detected (NotDetected); Barbiturates Screen Not Detected (NotDetected); Benzodiazepine Screen Not Detected (NotDetected); Cocaine Metabolite Screen Not Detected (NotDetected); Medtox Control Line Valid? VALID (VALID); Medtox Reader # READER 1; Methadone Not Detected (NotDetected); Methamphetamine Not Detected (NotDetected); Opiate Screen Not Detected (NotDetected); Oxycodone Screen Not Detected (NotDetected); Phencyclidine (PCP) Not Detected (NotDetected); THC/Cannabinoid Screen Not Detected (NotDetected); Tricyclic Screen Not Detected (NotDetected)
[2018-09-24 23:18] LABS: Bacteria/HPF 4+ HPF (None Seen)
[2018-09-24 23:19] LABS: Hyaline Casts/LPF 0-3 HYALINE CAST LPF (0-3 Hyaline)
[2018-09-24] MEDS ORDERED: hydrALAZINE 20 MG/ML VIAL SLOW IVP PRN (23:46)
[2018-09-24] MEDS ORDERED: HumaLOG 300 UNITS/3 ML VIAL SC PRN ×2 (23:46)
[2018-09-24] MEDS ORDERED: Dextrose 50% Abboject 50 ML SYRINGE SLOW IVP PRN (23:46)
[2018-09-24] MEDS ORDERED: Dextrose 5% in Water 1,000 ML IV PRN (23:46)
[2018-09-24] MEDS ORDERED: Acetaminophen 325 MG TAB PO PRN (23:46)
[2018-09-24 23:47] VITALS: BMI 28.9
[2018-09-25] MEDS: Sodium Chloride 0.9% 1,000 ML IV SCH ×2 (00:53→14:13)
[2018-09-25] MEDS ORDERED: traZODone HCl 150 MG TAB PO SCH (02:15)
[2018-09-25] MEDS: cefTRIAXone\\ROCEPHIN 1 GM in Sodium Chloride 0.9% 100 ML IVPB SCH (02:31)
--- NOTE | 2018-09-25 04:50 | HP ---
PRIMARY CARE PHYSICIAN: Dr. Bola Rutherford. CHIEF COMPLAINT: "I fell at home and couldn't get up." HISTORY OF PRESENT ILLNESS: Ms. Crowley is a pleasant 73-year-old female, who has a history of diabetes mellitus and hypertension. She has been essentially bed-bound for the past 6 months. She says that she does not walk. She attributes this to having no feeling in her legs from about the knees down and she says this is due to diabetic peripheral neuropathy. She says that earlier today she fell out of the bed and she tried to get up, but could not. She denies having . She says her tried to get her up, but could not get her up as well, and for this reason, they called the EMS and brought her to the hospital. In the ER, she was evaluated and found to have an elevated white blood cell count as well as elevated creatinine. Also, she was noted to be "covered in feces" and appeared to be extremely poorly kempt and this was also a concern for admission as well. When I asked the patient how she is feeling, she says she feels fine except that she has not eaten this afternoon. She denies having any fevers or chills. No nausea. No vomiting. No chest pain. No shortness of breath. No cough or congestion. She just says that she has been a little bit weak and she also says that she plans to go home with her who is her sole food counter worker when she leaves the hospital. Otherwise, the patient has no complaints. REVIEW OF SYSTEMS: With regard to review of systems again; CONSTITUTIONAL: There has been no fevers or chills. No night sweats. No weight loss. HEENT: No headaches. No dizziness. No visual changes. No sore throat or rhinorrhea. No neck pain. No adenopathy. PULMONARY: No hemoptysis. No cough. No wheezing. CARDIOVASCULAR: She denies any chest pain. No shortness of breath. No PND. No orthopnea. No palpitations. GASTROINTESTINAL: No abdominal pain. No nausea. No vomiting. No change in bowels. GENITOURINARY: No urinary frequency, hematuria, or hesitancy. NEUROLOGIC: No focal weakness. No seizures. SKIN AND INTEGUMENT: She does not notice any skin changes or rash. ENDOCRINE: No heat or cold intolerance. No polyuria or polydipsia. PAST MEDICAL HISTORY: Significant for diabetes mellitus type 2, diabetic peripheral neuropathy, chronic constipation, hypertension, and bipolar disorder. PAST SURGICAL HISTORY: She had right elbow surgery, left total knee replacement, appendectomy, hysterectomy, and tonsillectomy. ALLERGIES: IBUPROFEN. SOCIAL HISTORY: She is . She has 3 daughters. She is a nonsmoker and nondrinker. She is bed-bound. She says she does not walk. She has a bedside commode and essentially goes from the bed to the bedside commode. She says she does not bath. She would like to be a full code and her is her surrogate decision maker. FAMILY HISTORY: Unknown. She says she is adopted. CURRENT MEDICATIONS: Also unknown, but she says she uses the [facility] on [facility]. PHYSICAL EXAMINATION: GENERAL: She is alert and oriented. She appears to be in no acute distress. She is chronically ill appearing. She is fairly unkempt in appearance. VITAL SIGNS: Her blood pressure was 154/60, heart rate 83, respiratory rate of 20, and temperature is 97.9. HEENT: Her pupils are equal, round, and reactive. Extraocular muscles are intact. Her sclerae are anicteric. Throat, her mucous membranes are bit dry. She is edentulous. There is no erythema. NECK: There is no adenopathy. No bruits. LUNGS: Clear to auscultation. There is no wheezing. No rales. No rhonchi. CARDIOVASCULAR: She has a normal S1 and S2. There is no S3 or S4. No murmurs, clicks or rubs. ABDOMEN: Obese. It is soft. It is nontender and nondistended. Positive for bowel sounds. There is no rebound, no guarding. EXTREMITIES: She has multiple skin tears and excoriations. There is no calf edema. No joint effusions. NEUROLOGIC: She is able to move all of her extremities and it is grossly nonfocal. SKIN AND INTEGUMENT: She has multiple skin tears. She did have some hammertoe deformities on the feet. She also had rocker bottom deformities on the feet as well as bilateral calluses. LABORATORY DATA: Her sodium is 138, potassium 4.2, chloride is 105, CO2 is 21, BUN of 15, creatinine 1.53, glucose is 127. Toxicology, aspirin and acetaminophen are negative. On her CBC; white blood cell count 15.7, hemoglobin 12.9, hematocrit is 38.2, platelet count is 233, neutrophils are 77.2. ASSESSMENT: This is a pleasant 73-year-old female, who is being placed in observation due to generalized weakness and unable to get up. She also has an elevated white count of unknown etiology. 1. Leukocytosis. We will get urinalysis as well as chest x-ray to help evaluate this further. 2. Acute kidney injury. This could be due to volume depletion. She is basically immobile at home other than being able to transfer from the bed to the bedside commode. I suspect she may not be getting enough to drink as far as fluid intake at home. We will place her on gentle hydration for this. 3. Diabetes mellitus. I will need to reconcile and restart her home medications as indicated and also place her on sliding scale. 4. Hypertension. Again, we will need to reconcile and restart her home medications. We will also have her on medications p.r.n. and we will also place her on deep venous thrombosis and gastrointestinal prophylaxis. Job ID: [id number]
[2018-09-25 05:41] LABS: #Eosinphils 0.1 thou/uL (0.0-0.7); #Lymphocytes 2.3 thou/uL (1.20-3.40); #Neutrophils 10.4 thou/uL (1.40-6.50); %Basophils 0.2 % (0.0-1.0); %Eosinophils 0.6 % (0.0-10.0); %Lymphocytes 16.4 % (21.0-51.0); %Neutrophils 75.7 % (42.0-75.0); Hemoglobin 11.3 g/dL (12.0-16.0); Mean Corpuscular HGB CONC 33.9 g/dL (32.0-36.0); Mean Corpuscular Hemoglobin 31.1 pg (27.0-31.0); Mean Corpuscular Volume 91.8 fL (78.0-98.0); Mean Platelet Volume 7.2 fL (7.4-10.4); Platelet Count 218 thou/uL (130-400); RBC Distribution Width 13.2 % (11.5-14.5); Red Blood Cell (RBC) Count 3.63 mill/uL (4.20-5.40); White Blood Cell (WBC) Count 13.7 thou/uL (4.8-10.8)
[2018-09-25 05:53] LABS: Anion Gap 11 mmol/L (10-20); BUN (Urea Nitrogen) 15 mg/dL (9.8-20.1); Calc. Creatinine Clearance 49 mL/min (70-130); Calcium 8.9 mg/dL (7.8-10.44); Carbon Dioxide 23 mmol/L (23-31); Chloride 108 mmol/L (98-107); Estimated GFR-MDRD 37; Glucose 156 mg/dL (83-110); Potassium 3.7 mmol/L (3.5-5.1); Sodium 138 mmol/L (136-145)
--- NOTE | 2018-09-25 08:21 | RAD ---
CHEST 1 VIEW: INDICATION: History of leukocytosis. COMPARISON: Prior exam dated 04/22/2018. FINDINGS: Mild cardiomegaly is stable. Chronic lung changes are similar-appearing. Postsurgical changes of ri ght rotator cuff repair are stable. No acute airspace opacity or pleural effusion is evident. IMPRESSION: No acute cardiopulmonary abnormality. POS: BH
[2018-09-25] MEDS: Famotidine 20 MG TAB PO SCH (08:58)
[2018-09-25] MEDS: Enoxaparin Sodium 30 MG/0.3 ML SYRINGE SC SCH (08:58)
--- NOTE | 2018-09-25 10:18 | PDOC.PN ---
- Subjective Encounter Start Date: 09/25/18 Encounter Start Time: 12:30 Subjective: Patient sitting up in bed with at bedside. States she feels fine. -: Falls transfering to bedside commode and calls paramedics once per month -: to help her up. Otherwise stays in bed all the time. APS called previously for filthy conditions but can't do anything since patient refuses. Patient is A& O x4 right now, refusing all rehab/SNF offers. Wants to go home. - Objective Resuscitation Status - Order Detail: 09/24/18 22:42 Resuscitation Status Routine Resuscitation Status: FULL: Full Resuscitation MAR Reviewed: Yes Vital Signs & Weight: Vital Signs (12 hours) Temp Pulse Resp BP Pulse Ox 09/25/18 07:41 98.0 F 74 16 133/71 97 09/25/18 06:00 97.8 F 67 16 137/65 95 09/25/18 00:00 95 09/24/18 23:46 97.6 F 74 16 144/66 H 95 Weight Weight 190 lb 8 oz I&O: 09/24/18 09/25/18 09/26/18 06:59 06:59 06:59 Intake Total 10 537 Balance 10 537 Result Diagrams: 09/25/18 05:24 09/25/18 05:24 Additional Labs: Accuchecks 09/25/18 09/25/18 09/24/18 06:31 00:52 17:56 POC Glucose 119 H 127 H 135 H Phys Exam - Physical Examination Constitutional: NAD HEENT: moist MMs Respiratory: no wheezing, no rales, no rhonchi Cardiovascular: RRR, no significant murmur Gastrointestinal: soft, positive bowel sounds Neurological: non-focal Psychiatric: normal affect, A&O x 3 Dx/Plan (1) UTI (urinary tract infection) Status: Acute Qualifiers: Urinary tract infection type: acute cystitis Comment: culture pending, mild, on Rocephin (2) Leukocytosis Code(s): D72.829 - ELEVATED WHITE BLOOD CELL COUNT, UNSPECIFIED Status: Acute Comment: likely due to #1, improving (3) LIBORIO (acute kidney injury) Code(s): N17.9 - ACUTE KIDNEY FAILURE, UNSPECIFIED Status: Acute Comment: improving with fluids, similar to creainine from last year (4) DM type 2 (diabetes mellitus, type 2) Status: Chronic Qualifiers: Diabetes mellitus superintendent marine oil terminal insulin use: without superintendent marine oil terminal use Diabetes mellitus complication status: with unspecified complications Qualified Code(s) : E11.8 - Type 2 diabetes mellitus with unspecified complications (5) Hypertension Code(s): I10 - ESSENTIAL (PRIMARY) HYPERTENSION Status: Chronic Qualifiers: Hypertension type: essential hypertension Qualified Code(s): I10 - Essential (primary) hypertension Comment: controlled - Plan cont current plan of care, continue antibiotics, PT/OT PT eval and possible rehab, Hx of APS eval of home but patient competent to -: make on decisions so they can't do anything, will check post void residuals -: and if ok will d/c back home on oral antibiotics. * . - Discharge Day Encounter end time: 12:45
[2018-09-25] MEDS: Nystatin Powder 15 GM BOT TOP SCH ×2 (12:50→19:54)
[2018-09-26] MEDS: Sodium Chloride 0.9% 1,000 ML IV SCH ×2 (00:29→02:54)
[2018-09-26] MEDS: cefTRIAXone\\ROCEPHIN 1 GM in Sodium Chloride 0.9% 100 ML IVPB SCH (02:52)
--- NOTE | 2018-09-26 09:12 | PDOC.PN ---
- Subjective Encounter Start Date: 09/26/18 Encounter Start Time: 11:10 Subjective: Patient without complaints today. Now that back in room she is not -: as certain about going to rehab. - Objective Resuscitation Status - Order Detail: 09/24/18 22:42 Resuscitation Status Routine Resuscitation Status: FULL: Full Resuscitation MAR Reviewed: Yes Vital Signs & Weight: Vital Signs (12 hours) Temp Pulse Resp BP Pulse Ox 09/26/18 07:25 97.5 F L 73 17 156/73 H 96 Weight Admit Weight 190 lb 8 oz Weight 190 lb 8 oz I&O: 09/25/18 09/26/18 09/27/18 06:59 06:59 06:59 Intake Total 10 537 Balance 10 537 Result Diagrams: 09/25/18 05:24 09/25/18 05:24 Additional Labs: Accuchecks 09/26/18 09/25/18 09/25/18 05:11 20:18 16:26 POC Glucose 117 H 150 H 189 H 09/25/18 11:54 POC Glucose 142 H Phys Exam - Physical Examination Constitutional: NAD HEENT: moist MMs Respiratory: no wheezing, no rales, no rhonchi Cardiovascular: RRR, no significant murmur Gastrointestinal: soft, positive bowel sounds Musculoskeletal: no edema Neurological: non-focal Psychiatric: normal affect, A&O x 3 Dx/Plan (1) UTI (urinary tract infection) Status: Acute Qualifiers: Urinary tract infection type: acute cystitis Comment: culture pending, on Rocephin (2) Leukocytosis Code(s): D72.829 - ELEVATED WHITE BLOOD CELL COUNT, UNSPECIFIED Status: Acute Comment: likely due to #1, improving (3) LIBORIO (acute kidney injury) Code(s): N17.9 - ACUTE KIDNEY FAILURE, UNSPECIFIED Status: Acute Comment: improving with fluids, similar to creainine from last year (4) DM type 2 (diabetes mellitus, type 2) Status: Chronic Qualifiers: Diabetes mellitus prison insulin use: without prison use Diabetes mellitus complication status: with unspecified complications Qualified Code(s) : E11.8 - Type 2 diabetes mellitus with unspecified complications (5) Hypertension Code(s): I10 - ESSENTIAL (PRIMARY) HYPERTENSION Status: Chronic Qualifiers: Hypertension type: essential hypertension Qualified Code(s): I10 - Essential (primary) hypertension Comment: controlled - Plan cont current plan of care, continue antibiotics, PT/OT rehab placement * . - Discharge Day Encounter end time: 11:15
[2018-09-26] MEDS: Enoxaparin Sodium 30 MG/0.3 ML SYRINGE SC SCH (10:32)
[2018-09-26] MEDS: Famotidine 20 MG TAB PO SCH (10:32)
[2018-09-26] MEDS: Nystatin Powder 15 GM BOT TOP SCH ×2 (10:32→20:38)
[2018-09-26] MEDS: traZODone HCl 150 MG TAB PO SCH (20:37)
[2018-09-27] MEDS: Sodium Chloride 0.9% 1,000 ML IV SCH ×2 (05:08→18:07)
[2018-09-27 06:43] LABS: #Basophils 0.1 thou/uL (0.0-0.2); #Eosinphils 0.4 thou/uL (0.0-0.7); #Lymphocytes 3.1 thou/uL (1.20-3.40); #Monocytes 0.9 thou/uL (0.11-0.59); %Basophils 0.6 % (0.0-1.0); %Eosinophils 3.6 % (0.0-10.0); %Lymphocytes 29.8 % (21.0-51.0); %Monocytes 8.3 % (0.0-10.0); %Neutrophils 57.7 % (42.0-75.0); Hemoglobin 12.1 g/dL (12.0-16.0); Mean Corpuscular HGB CONC 33.4 g/dL (32.0-36.0); Mean Platelet Volume 7.3 fL (7.4-10.4); Platelet Count 222 thou/uL (130-400); RBC Distribution Width 13.4 % (11.5-14.5); Red Blood Cell (RBC) Count 3.89 mill/uL (4.20-5.40); White Blood Cell (WBC) Count 10.4 thou/uL (4.8-10.8)
[2018-09-27 06:54] LABS: Anion Gap 16 mmol/L (10-20); BUN (Urea Nitrogen) 15 mg/dL (9.8-20.1); Calc. Creatinine Clearance 45 mL/min (70-130); Calcium 9.4 mg/dL (7.8-10.44); Carbon Dioxide 19 mmol/L (23-31); Chloride 108 mmol/L (98-107); Estimated GFR-MDRD 33; Glucose 113 mg/dL (83-110); Potassium 4.1 mmol/L (3.5-5.1); Sodium 139 mmol/L (136-145)
[2018-09-27] MEDS: Enoxaparin Sodium 30 MG/0.3 ML SYRINGE SC SCH (09:06)
[2018-09-27] MEDS: Nitrofurantoin Monohyd/M-Cryst 100 MG CAP PO SCH ×2 (09:06→20:12)
[2018-09-27] MEDS: Famotidine 20 MG TAB PO SCH (09:06)
[2018-09-27] MEDS: Nystatin Powder 15 GM BOT TOP SCH ×2 (09:07→20:12)
--- NOTE | 2018-09-27 15:47 | PDOC.PN ---
- Subjective Encounter Start Date: 09/27/18 Encounter Start Time: 14:10 Subjective: Patient reports still quite weak. She states she is very nervous whenever -: people are not present in the room. Very worried that the PT tech will -: leave her. - Objective Resuscitation Status - Order Detail: 09/24/18 22:42 Resuscitation Status Routine Resuscitation Status: FULL: Full Resuscitation MAR Reviewed: Yes Vital Signs & Weight: Vital Signs (12 hours) Temp Pulse Resp BP BP Pulse Ox 09/27/18 12:19 98.0 F 70 20 148/78 H 96 09/27/18 09:16 98 09/27/18 08:00 97.9 F 76 18 148/72 H 98 Weight Admit Weight 190 lb 8 oz Weight 190 lb 8 oz I&O: 09/26/18 09/27/18 09/28/18 06:59 06:59 06:59 Intake Total 537 240 Balance 537 240 Result Diagrams: 09/27/18 06:05 09/27/18 06:05 Additional Labs: Accuchecks 09/27/18 09/27/18 09/26/18 12:22 05:52 20:13 POC Glucose 112 H 136 H 149 H 09/26/18 15:46 POC Glucose 172 H Phys Exam - Physical Examination Constitutional: NAD HEENT: moist MMs Respiratory: no wheezing, no rales, no rhonchi Cardiovascular: RRR Gastrointestinal: soft, positive bowel sounds Musculoskeletal: no edema very weak all over, sitting up but unsteady and nervous Psychiatric: A&O x 3 Dx/Plan (1) UTI (urinary tract infection) Status: Acute Qualifiers: Urinary tract infection type: acute cystitis Comment: culture pending E. coli and other bacteria, full ID pending, on Rocephin (2) Leukocytosis Code(s): D72.829 - ELEVATED WHITE BLOOD CELL COUNT, UNSPECIFIED Status: Resolved Comment: likely due to #1, improving (3) LIBORIO (acute kidney injury) Code(s): N17.9 - ACUTE KIDNEY FAILURE, UNSPECIFIED Status: Chronic Comment: similar to creainine from last year (4) DM type 2 (diabetes mellitus, type 2) Status: Chronic Qualifiers: Diabetes mellitus terminal press operator insulin use: without terminal press operator use Diabetes mellitus complication status: with unspecified complications Qualified Code(s) : E11.8 - Type 2 diabetes mellitus with unspecified complications (5) Hypertension Code(s): I10 - ESSENTIAL (PRIMARY) HYPERTENSION Status: Chronic Qualifiers: Hypertension type: essential hypertension Qualified Code(s): I10 - Essential (primary) hypertension Comment: controlled - Plan cont current plan of care, continue antibiotics, PT/OT awaiting rehab placement * . - Discharge Day Encounter end time: 14:25
[2018-09-27] MEDS ORDERED: Metamucil PACK PO SCH (18:00)
[2018-09-27] MEDS: traZODone HCl 150 MG TAB PO SCH (22:33)
[2018-09-28 08:05] VITALS: BP 146/60; TEMP 97.9
--- NOTE | 2018-09-28 08:14 | PDOC.PN ---
- Subjective Encounter Start Date: 09/28/18 Encounter Start Time: 11:00 Subjective: Patient without complaints. Moving around some with PT, but not trying to -: stand yet. - Objective Resuscitation Status - Order Detail: 09/24/18 22:42 Resuscitation Status Routine Resuscitation Status: FULL: Full Resuscitation MAR Reviewed: Yes Vital Signs & Weight: Vital Signs (12 hours) Temp Pulse Resp BP Pulse Ox 09/28/18 08:00 97.9 F 70 20 146/60 H 97 Weight Admit Weight 190 lb 8 oz Weight 190 lb 8 oz I&O: 09/27/18 09/28/18 09/29/18 06:59 06:59 06:59 Intake Total 240 1260 Balance 240 1260 Result Diagrams: 09/27/18 06:05 09/27/18 06:05 Additional Labs: Accuchecks 09/28/18 09/27/18 09/27/18 05:26 20:40 17:00 POC Glucose 101 230 H 150 H 09/27/18 12:22 POC Glucose 112 H Phys Exam - Physical Examination Constitutional: NAD HEENT: moist MMs Respiratory: no wheezing, no rales, no rhonchi Cardiovascular: RRR, no significant murmur Gastrointestinal: soft, positive bowel sounds Neurological: non-focal Psychiatric: normal affect, A&O x 3 Dx/Plan (1) UTI (urinary tract infection) Status: Acute Qualifiers: Urinary tract infection type: acute cystitis Comment: culture pending E. coli and Klebsiella, apparently Rocephin was discontinued second hospital day and switched to Nitrofurantoin, this covers both bacteria (2) Leukocytosis Code(s): D72.829 - ELEVATED WHITE BLOOD CELL COUNT, UNSPECIFIED Status: Resolved Comment: likely due to #1, improving (3) LIBORIO (acute kidney injury) Code(s): N17.9 - ACUTE KIDNEY FAILURE, UNSPECIFIED Status: Chronic Comment: similar to creainine from last year (4) DM type 2 (diabetes mellitus, type 2) Status: Chronic Qualifiers: Diabetes mellitus meterman insulin use: without meterman use Diabetes mellitus complication status: with unspecified complications Qualified Code(s) : E11.8 - Type 2 diabetes mellitus with unspecified complications (5) Hypertension Code(s): I10 - ESSENTIAL (PRIMARY) HYPERTENSION Status: Chronic Qualifiers: Hypertension type: essential hypertension Qualified Code(s): I10 - Essential (primary) hypertension Comment: controlled - Plan cont current plan of care, continue antibiotics, PT/OT rehab placement pending, likely tonight or tomorrow when bed available * . - Discharge Day Encounter end time: 11:30
[2018-09-28] MEDS: Nitrofurantoin Monohyd/M-Cryst 100 MG CAP PO SCH (08:29)
[2018-09-28] MEDS: Famotidine 20 MG TAB PO SCH (08:29)
[2018-09-28] MEDS: Enoxaparin Sodium 30 MG/0.3 ML SYRINGE SC SCH (08:30)
[2018-09-28] MEDS: Nystatin Powder 15 GM BOT TOP SCH (08:30)
[2018-09-28] MEDS: Sodium Chloride 0.9% 1,000 ML IV SCH (08:31)
[2018-09-28] MEDS ORDERED: Cefdinir 300 MG CAP PO SCH (09:00)
[2018-09-28] MEDS ORDERED: Metamucil PACK PO SCH (09:00)
[2018-09-28] MEDS ORDERED: risperiDONE 0.25 MG TAB PO SCH (21:00)
[2018-09-28] MEDS ORDERED: Atorvastatin Calcium 40 MG TAB PO SCH (21:00)
[2018-09-28] MEDS ORDERED: Donepezil HCl 5 MG TAB PO SCH (21:00)
[2018-09-28] MEDS ORDERED: Lisinopril 10 MG TAB PO SCH (21:00)
--- NOTE | 2018-09-29 05:42 | DIS ---
DATE OF ADMISSION: 09/25/2018 DATE OF DISCHARGE: 09/28/2018 PRIMARY CARE PHYSICIAN: Bola Rutherford MD REASON FOR ADMISSION: Urinary tract infection with leukocytosis. DIAGNOSES AT DISCHARGE: 1. Urinary tract infection with Escherichia coli and Klebsiella sensitive to nitrofurantoin. 2. Leukocytosis, resolved. 3. Chronic kidney failure, stage 3. 4. Diabetes mellitus type 2. 5. Hypertension. PROCEDURES: None. CONSULTATIONS: None. PERTINENT LABORATORY: Urine culture with greater than 100,000 colony-forming units of both E coli and Klebsiella pneumonia, both of them sensitive to the Rocephin given in the hospital along with nitrofurantoin as well. SUMMARY OF HOSPITAL COURSE: This is a 73-year-old white female with history of diabetes and hypertension. She has had decreased strength but was bed-bound for the last six months, usually transitions to a bedside commode, but is quite weak with that, unstable on her feet. She fell prior to admission, was unable to get up off the floor and her was trying to help her up and noted that she was very weak and that she was covered in feces, extremely poorly kempt, so they were concerned and had EMS come and evaluate her. She was brought into the emergency room, noted to have leukocytosis and urinary tract infection, started on antibiotics. The patient had physical therapy evaluation in the hospital as she was again noted to be very debilitated that was able to work some with physical therapy and discussion with patient and her . She is not safe at home currently without improving her strength and balance for transfers. As a result, she was evaluated for rehab and is being sent to [facility] pending bed availability. Discharge to [facility]. ACTIVITY: As tolerated. DIET: Diabetic diet. THERAPIES: Occupational and physical therapy. MEDICATIONS: 1. Macrobid 100 mg twice a day for another six days. 2. Nystatin powder as needed. 3. Metamucil one packet daily. 4. Trazodone 150 mg at night. 5. Amlodipine 5 mg daily. 6. Aspirin 81 mg daily. 7. Atorvastatin 40 mg at night. 8. Vitamin D3 of 4000 units daily. 9. Aricept 5 mg at night. 10. Premarin 0.625 mg daily. 11. Levothyroxine 125 mcg daily. 12. Lisinopril 10 mg at night. 13. Ditropan 5 mg daily. 14. Risperidone 0.5 mg at night. Job ID: [id number]
[2018-09-29] MEDS ORDERED: Levothyroxine Sodium 125 MCG TAB PO SCH (06:00)
[2018-09-29] MEDS ORDERED: Aspirin 81 mg Enteric Coated Tablet PO SCH (09:00)
[2018-09-29] MEDS ORDERED: Oxybutynin 5 MG TAB PO SCH (09:00)
[2018-09-29] MEDS ORDERED: Amlodipine 5 MG TAB PO SCH (09:00)
== END 2018-09-28 15:32 | DRG 683 ==
LOC: ERS 16:59 → T4-B 23:44 → INTOOBSV 23:44 → OBSVTOIN 09-25 17:05
PROVIDERS: ADMIT Internal Medicine; ATTEND Internal Medicine
DX: N17.9 Acute kidney failure, unspecified (principal); N30.00 Acute cystitis without hematuria; E11.42 Type 2 diabetes mellitus with diabetic polyneuropathy; I10 Essential (primary) hypertension; W06.XXXA Fall from bed, initial encounter; K59.09 Other constipation; F31.9 Bipolar disorder, unspecified; Z88.8 Allergy status to other drugs, medicaments and biological substances; Z74.01 Bed confinement status; Z79.899 Other long term (current) drug therapy; Z79.82 Long term (current) use of aspirin; B96.20 Unspecified Escherichia coli [E. coli] as the cause of diseases classified elsewhere; B96.1 Klebsiella pneumoniae [K. pneumoniae] as the cause of diseases classified elsewhere
CPT/HCPCS: 36415; 36416; 51701; 71045; 80048; 80053; 80306; 80307; 81003; 81015; 82550; 83735; 85025; 87077; 87086; 87186; A4353; J0696; J1650; J3490

== ENCOUNTER 2018-10-25 18:06 | Observation (INO) | payer MEDICARE, OTHER ==
[2018-10-25 18:52] LABS: #Basophils 0.1 thou/uL (0.0-0.2); #Eosinphils 0.3 thou/uL (0.0-0.7); #Lymphocytes 2.5 thou/uL (1.20-3.40); #Monocytes 0.9 thou/uL (0.11-0.59); #Neutrophils 8.1 thou/uL (1.40-6.50); %Basophils 0.4 % (0.0-1.0); %Eosinophils 2.3 % (0.0-10.0); %Lymphocytes 21.4 % (21.0-51.0); %Monocytes 7.8 % (0.0-10.0); %Neutrophils 68.1 % (42.0-75.0); Hemoglobin 12.5 g/dL (12.0-16.0); Mean Corpuscular HGB CONC 33.3 g/dL (32.0-36.0); Mean Corpuscular Hemoglobin 31.6 pg (27.0-31.0); Mean Corpuscular Volume 94.7 fL (78.0-98.0); Platelet Count 329 thou/uL (130-400); RBC Distribution Width 12.3 % (11.5-14.5); Red Blood Cell (RBC) Count 3.96 mill/uL (4.20-5.40); White Blood Cell (WBC) Count 11.9 thou/uL (4.8-10.8)
[2018-10-25 18:55] LABS: Bacteria/HPF 4+ HPF (None Seen); Bilirubin Negative (Negative); Blood, Urine Negative (Negative); Clarity Clear (Clear); Glucose, Urine (Dipstick) Normal (Negative); Leukocyte Negative Leu/uL (Negative); Nitrite Negative (Negative); Protein, Urine (Dipstick) Negative (Neg-Trace); RBC/HPF None Seen HPF (0-3); Urobilinogen Normal mg/dL (Less than 2); WBC/HPF 0-3 HPF (0-3)
--- NOTE | 2018-10-25 19:06 | RAD ---
EXAM: Single view of the chest HISTORY: Weakness COMPARISON: 09/24/2018 FINDINGS: Single view of the chest shows a normal sized cardiomediastinal silhouette. There is no dioni dence of consolidation, mass, or pleural effusion. The bones are unremarkable. IMPRESSION: No evidence of acute cardiopulmonary disease
[2018-10-25 19:14] LABS: ALT (SGPT) 11 U/L (8-55); AST (SGOT) 11 U/L (5-34); Albumin 3.7 g/dL (3.4-4.8); Alkaline Phosphatase 83 U/L (40-150); Anion Gap 15 mmol/L (10-20); BUN (Urea Nitrogen) 13 mg/dL (9.8-20.1); Bilirubin, Total 0.5 mg/dL (0.2-1.2); CK (CPK) 70 U/L (29-168); Calc. Creatinine Clearance 0 mL/min (70-130); Calcium 9.4 mg/dL (7.8-10.44); Carbon Dioxide 20 mmol/L (23-31); Chloride 110 mmol/L (98-107); Estimated GFR-MDRD 31; Globulin 3.2 g/dL (2.4-3.5); Glucose 128 mg/dL (83-110); Magnesium 1.6 mg/dL (1.6-2.6); Potassium 4.3 mmol/L (3.5-5.1); Protein, Total 6.9 g/dL (6.0-8.3); Sodium 141 mmol/L (136-145)
[2018-10-25] MEDS ORDERED: traZODone HCl 150 MG TAB PO SCH (23:59)
[2018-10-26] MEDS ORDERED: Acetaminophen 325 MG TAB PO PRN (07:52)
[2018-10-26] MEDS ORDERED: HumaLOG 300 UNITS/3 ML VIAL SC PRN (07:56)
[2018-10-26] MEDS ORDERED: Dextrose 5% in Water 1,000 ML IV PRN (07:56)
[2018-10-26] MEDS ORDERED: Dextrose 50% Abboject 50 ML SYRINGE SLOW IVP PRN (07:56)
[2018-10-26] MEDS: Sodium Chloride 0.9% 1,000 ML IV SCH ×2 (08:25→21:45)
[2018-10-26] MEDS: Enoxaparin Sodium 40 MG/0.4 ML SYRINGE SC SCH (08:26)
[2018-10-26] MEDS: Metamucil PACK PO SCH (10:00)
[2018-10-26] MEDS ORDERED: Nystatin Powder 15 GM BOT TOP PRN (15:57)
[2018-10-26] MEDS ORDERED: traZODone HCl 150 MG TAB PO SCH (21:00)
[2018-10-26] MEDS: Nystatin Powder 15 GM BOT TOP SCH (21:48)
[2018-10-27 05:58] LABS: #Basophils 0.1 thou/uL (0.0-0.2); #Eosinphils 0.5 thou/uL (0.0-0.7); #Lymphocytes 2.4 thou/uL (1.20-3.40); #Monocytes 0.8 thou/uL (0.11-0.59); %Basophils 0.8 % (0.0-1.0); %Eosinophils 4.8 % (0.0-10.0); %Lymphocytes 24.9 % (21.0-51.0); %Monocytes 8.1 % (0.0-10.0); %Neutrophils 61.3 % (42.0-75.0); Hemoglobin 11.8 g/dL (12.0-16.0); Mean Corpuscular HGB CONC 32.9 g/dL (32.0-36.0); Mean Corpuscular Hemoglobin 31.1 pg (27.0-31.0); Mean Corpuscular Volume 94.6 fL (78.0-98.0); Mean Platelet Volume 7.4 fL (7.4-10.4); Platelet Count 272 thou/uL (130-400); RBC Distribution Width 12.2 % (11.5-14.5); Red Blood Cell (RBC) Count 3.78 mill/uL (4.20-5.40); White Blood Cell (WBC) Count 9.7 thou/uL (4.8-10.8)
[2018-10-27 06:20] LABS: Anion Gap 12 mmol/L (10-20); BUN (Urea Nitrogen) 12 mg/dL (9.8-20.1); Calc. Creatinine Clearance 57 mL/min (70-130); Calcium 8.3 mg/dL (7.8-10.44); Carbon Dioxide 20 mmol/L (23-31); Chloride 111 mmol/L (98-107); Estimated GFR-MDRD 41; Glucose 115 mg/dL (83-110); Potassium 3.8 mmol/L (3.5-5.1); Sodium 139 mmol/L (136-145)
--- NOTE | 2018-10-27 08:25 | HP ---
CHIEF COMPLAINT: Generalized weakness. HISTORY OF PRESENT ILLNESS: The patient is a 73-year-old female, who was brought to the emergency room because her , who has her caregiver at home, fell yesterday morning and was taken to the emergency room and got admitted to the hospital. Apparently, she has weakness in her body, but mainly in her legs and she has not been ambulating for many months. She is bedridden. She is urine incontinent, but she is aware of her bowel movements. She does not have much complaints to offer besides those findings. She denies any fever or chills, cough, chest pain, shortness of breath. She denies any joint pains. She complains about some peripheral edema on her lower extremities, and her , Janak Crowley is her surrogate decision maker. Primary care physician is Dr. Rutherford. PAST MEDICAL HISTORY: Positive for, 1. CVA. 2. Coronary artery disease, [id number]. 3. Hypothyroidism. 4. Bipolar disorder. 5. Diabetes mellitus. 6. Hypertension. PAST SURGICAL HISTORY: 1. Right elbow surgery. 2. Left knee replacement. 3. Appendectomy. 4. Hysterectomy. 5. Tonsillectomy. PSYCHIATRIC HISTORY: Bipolar disorder. SOCIAL HISTORY: She denies any alcohol intake, cigarette smoking, or use any illicit drugs. FAMILY HISTORY: The patient was adopted, so she does not know her biological parents. ALLERGIES: NONE. CURRENT MEDICATIONS: Unknown. REVIEW OF SYSTEMS: All 14 systems were reviewed and they are negative except for symptoms mentioned in HPI. PHYSICAL EXAMINATION: GENERAL: She is not in any distress during my visit. VITAL SIGNS: Blood pressure is 154/77, pulse is 96, temperature is 97.9, respirations 17, O2 saturation is 94% on room air. She is obese. Her BMI is 30.1. HEENT: Head is atraumatic and normocephalic. Eyes are PERRLA. Sclerae are nonicteric. Conjunctivae pinkish. Oral mucosa is moist. NECK: Supple. LUNGS: Clear. HEART: S1, S2 normal. No S3. No S4. No any murmur. ABDOMEN: Obese, soft, nontender, nondistended. EXTREMITIES: No clubbing, cyanosis. There is 1+ peripheral edema similar bilateral on both lower extremities. She has palpable pulses on both tibialis posterior and dorsalis pedis arteries on both lower extremities. NEUROLOGICAL EXAMINATION: She follows my commands. She moves her all 4 extremities. There is no any motor or sensory deficits. I do not appreciate any significant weakness in her extremities. She has stage II decubitus on her right buttock, which is chronic according to her. LABORATORY DATA: Showed white count of 11.9, hemoglobin of 12.5, hematocrit 37.5, platelet count is 329,000. Sodium 141, potassium 4.3, chloride 110, CO2 of 20, BUN 13, creatinine 1.63, glucose 128, and the rest of chemistry within normal limits. Urinalysis showed just 4 to 6 squamous epithelial cells and 4+ bacteria, but otherwise is negative. Chest x-ray personally reviewed by me showed no evidence of acute cardiopulmonary disease. IMPRESSION: 1. Bedridden patient with complaints of generalized weakness and inability to ambulate. She is not on physical examination. 2. Neglect. 3. Right buttock stage II decubitus. 4. Diabetes mellitus. 5. Coronary artery disease. 6. History of cerebrovascular accident. 7. Bipolar disorder. 8. Hypothyroidism. PLAN: Admission for observation. Condition is fair. Activity is bedrest. Up in the chair, if it is possible. IV normal saline at 75 mL/h. Since there is some elevation of her creatinine, which is most likely chronic, but her baseline is around 1.4 and today, it is 1.6. We will obtain consultation with Wound Care. We will get Adult Protective Services. We will talk to the patient's daughter to see whether she can take care of her during her 's illness and we are going to find her home medications and reconcile the list when the daughter gets here. Also, we will keep her on Accu-Cheks a.c. and at bedtime, and mild sliding scale. PT and OT. Her creatinine level tomorrow morning. Job ID: [id number]
[2018-10-27] MEDS: Nystatin Powder 15 GM BOT TOP SCH (08:57)
[2018-10-27] MEDS: Enoxaparin Sodium 40 MG/0.4 ML SYRINGE SC SCH (08:57)
[2018-10-27] MEDS: Metamucil PACK PO SCH (08:57)
[2018-10-27] MEDS: Sodium Chloride 0.9% 1,000 ML IV SCH (11:29)
[2018-10-27 11:41] VITALS: BP 134/76; TEMP 98.1
--- NOTE | 2018-10-27 14:35 | DIS ---
DATE OF ADMISSION: 10/25/2018 DATE OF DISCHARGE: 10/27/2018 FINAL DIAGNOSES: 1. Bedridden patient with complaints of generalized weakness and inability to ambulate for several years without evidence of generalized weakness on physical examination. 2. Neglect. 3. Right buttock stage II decubitus. 4. Diabetes mellitus. 5. Coronary artery disease, currently stable. 6. History of cerebrovascular accident. 7. Bipolar disorder. 8. Hypothyroidism. HOSPITAL COURSE: The patient is a 73-year-old female, who was brought to the emergency room because her , who is her caregiver at home, fell and he got admitted to the hospital yesterday morning. The patient complained about some generalized weakness in her body, but physical examination did not reveal that finding. She is urine incontinent, but she controls her bowels. She did not have much complaints to offer at the time of the admission and this was more social admission than anything else. She was seen by the Wound Care team and dietitian, who recommended some supplements like zinc and vitamin C to speed up the healing of her right buttock decubitus. I had a long discussion with the patient's daughter who is adopted, but she said that she will take care of her mother at home, especially now when her is in the hospital. We are going to continue her home medications, which are levothyroxine 125 mcg once a day, Premarin 0.625 mg once a day, Aricept 5 mg at bedtime, vitamin D3 4000 units once a day, atorvastatin 40 mg at bedtime, amlodipine 5 mg once a day, Ditropan 5 mg once a day, nystatin (Mycostatin) powder twice a day, lisinopril 20 mg at bedtime, trazodone 150 mg at bedtime, risperidone 0.5 mg at bedtime. She is basically bedridden. She does not ambulate at all. DIET: Her diet is 2000 calories ADA. FOLLOWUP: She needs to follow up with the primary care physician in 4 weeks regarding her decubitus. Job ID: [id number]
== END 2018-10-27 15:49 | disposition home or self-care (01) ==
LOC: ERS 18:06 → T4-B 21:28
PROVIDERS: ADMIT Hospitalist; ATTEND Hospitalist
DX: R53.1 Weakness (principal); R26.2 Difficulty in walking, not elsewhere classified; T74.01XA Adult neglect or abandonment, confirmed, initial encounter; L89.312 Pressure ulcer of right buttock, stage 2; E11.9 Type 2 diabetes mellitus without complications; I25.10 Atherosclerotic heart disease of native coronary artery without angina pectoris; F31.9 Bipolar disorder, unspecified; E03.9 Hypothyroidism, unspecified; I10 Essential (primary) hypertension; Z74.01 Bed confinement status; Z68.30 Body mass index [BMI] 30.0-30.9, adult; Z86.73 Personal history of transient ischemic attack (TIA), and cerebral infarction without residual deficits; Z79.899 Other long term (current) drug therapy
CPT/HCPCS: 51701; 71045; 80048; 80053; 81003; 82550; 82962 ×2; 83605; 83735; 85025 ×2; 96360; 96361 ×3; 96372 ×2; 97139 ×3; 99285; G0378 ×2; 36415; 36416; A4353; J1650

== ENCOUNTER 2019-02-17 00:46 | Observation (INO) | payer MEDICARE, OTHER ==
[2019-02-17 01:30] LABS: #Eosinphils 0.1 thou/uL (0.0-0.7); #Monocytes 1.1 thou/uL (0.11-0.59); #Neutrophils 15.6 thou/uL (1.40-6.50); %Basophils 0.2 % (0.0-1.0); %Eosinophils 0.6 % (0.0-10.0); %Lymphocytes 5.9 % (21.0-51.0); %Monocytes 5.9 % (0.0-10.0); %Neutrophils 87.5 % (42.0-75.0); Hemoglobin 12.9 g/dL (12.0-16.0); Mean Corpuscular HGB CONC 32.9 g/dL (32.0-36.0); Mean Corpuscular Hemoglobin 29.5 pg (27.0-31.0); Mean Corpuscular Volume 89.7 fL (78.0-98.0); Mean Platelet Volume 7.5 fL (7.4-10.4); Platelet Count 256 thou/uL (130-400); RBC Distribution Width 13.8 % (11.5-14.5); Red Blood Cell (RBC) Count 4.39 mill/uL (4.20-5.40); White Blood Cell (WBC) Count 17.8 thou/uL (4.8-10.8)
[2019-02-17 02:19] LABS: ALT (SGPT) 18 U/L (8-55); AST (SGOT) 52 U/L (5-34); Albumin 3.6 g/dL (3.4-4.8); Alkaline Phosphatase 88 U/L (40-110); Anion Gap 21 mmol/L (10-20); BUN (Urea Nitrogen) 23 mg/dL (9.8-20.1); Bilirubin, Total 0.8 mg/dL (0.2-1.2); Calc. Creatinine Clearance 0 mL/min (70-130); Calcium 9.4 mg/dL (7.8-10.44); Carbon Dioxide 15 mmol/L (23-31); Chloride 106 mmol/L (98-107); Estimated GFR-MDRD 27; Globulin 3.5 g/dL (2.4-3.5); Glucose 209 mg/dL (83-110); Potassium 3.7 mmol/L (3.5-5.1); Protein, Total 7.1 g/dL (6.0-8.3); Sodium 138 mmol/L (136-145)
[2019-02-17 02:39] LABS: Bacteria/HPF 4+ HPF (None Seen); Bilirubin Negative (Negative); Blood, Urine 3+ (Negative); Clarity Turbid (Clear); Glucose, Urine (Dipstick) Normal (Negative); Leukocyte 25 Leu/uL (Negative); Nitrite Negative (Negative); Protein, Urine (Dipstick) 50 mg/dL (Neg-Trace); RBC/HPF 0-3 HPF (0-3); Squamous Epithelial 0-3 HPF (0-3); Urobilinogen 3 mg/dL (Less than 2); WBC/HPF 0-3 HPF (0-3); Yeast-Hyphae 1+ HPF (None Seen)
[2019-02-17] MEDS ORDERED: Acetaminophen 325 MG TAB PO PRN (04:44)
[2019-02-17] MEDS ORDERED: Acetaminophen 650 MG Suppository PR PRN (04:44)
[2019-02-17] MEDS ORDERED: Bisacodyl 5 MG TAB PO PRN (04:44)
[2019-02-17 04:56] VITALS: BMI 29.2
[2019-02-17] MEDS ORDERED: hydrALAZINE 20 MG/ML VIAL SLOW IVP PRN (04:57)
--- NOTE | 2019-02-17 05:23 | HP ---
PRIMARY CARE PROVIDER: Bola Rutherford MD. CHIEF COMPLAINT: Fall. HISTORY OF PRESENT ILLNESS: Ms. Crowley is a pleasant 73-year-old lady who was seen at [facility] on February 17, 2019. The patient reportedly fell at home while trying to get into her bed. EMS was called. They report that the house was in disarray and the patient was covered in feces. The patient denies any head trauma or loss of consciousness. She denies any nausea or vomiting. She denies any new pain. She complains of chronic back and knee pain. She also reports groin rash, which is old. The patient was referred to Hospitalist Service for case management consult for placement. The patient is bed-bound at baseline. The patient's is her primary caregiver. He is currently hospitalized in the critical care unit at this hospital. REVIEW OF SYSTEMS: All systems were reviewed and found to be negative except for the pertinent positives mentioned above. PAST MEDICAL HISTORY: Diabetes mellitus type 2, hypertension. PAST SURGICAL HISTORY: Right elbow surgery, left knee replacement, appendectomy, hysterectomy, and tonsillectomy. PSYCHIATRIC HISTORY: Bipolar disorder. SOCIAL HISTORY: The patient denies tobacco use, alcohol use, or recreational drug use. FAMILY HISTORY: The patient is adopted, does not know her family's medical history. ALLERGIES: NO KNOWN DRUG ALLERGIES. CURRENT MEDICATIONS: These need to be clarified, the patient in the past was on; 1. Amlodipine. 2. Vitamin D3. 3. Aricept. 4. Estrogens. 5. Levothyroxine. 6. Lisinopril. 7. Oxybutynin. 8. Risperidone. 9. Trazodone. 10. Atorvastatin. 11. Nystatin. PHYSICAL EXAMINATION: GENERAL: Ms. Crowley is awake and alert, not in acute distress. VITAL SIGNS: Blood pressure is 121/57, pulse 95, respiratory rate 17, and oxygen saturation 95% on room air. She is afebrile. EYES: No scleral icterus, no conjunctival pallor. ENT: Moist mucosal membranes. No oropharyngeal erythema or exudates. NECK: Supple, nontender, trachea is midline. RESPIRATORY: Accessory muscles of breathing are not active. Chest wall movements are symmetric bilaterally. LUNGS: Clear to auscultation without wheeze, rhonchi, or crepitations. CARDIOVASCULAR: S1 and S2 are heard, regular. Peripheral pulses palpable. MUSCULOSKELETAL: The patient is able to move all 4 extremities. SKIN: She has a pressure ulcer over her buttocks. She also has rash under the inguinal folds and pannus, consistent with yeast infection. PSYCHIATRIC: Normal mood, normal affect, the patient is oriented to person and place, not to time. LYMPHATIC: No cervical lymphadenopathy. LABORATORY DATA: Ms. Crowley' labs and investigations were reviewed. She has leukocytosis with 17,800 white cells, of which 87.5% are neutrophils, normal hemoglobin, normal platelet count, normal sodium, normal potassium, elevated blood urea nitrogen of 23, elevated creatinine of 1.81, last known creatinine 1.27 on October 27, 2018, elevated AST of 52, otherwise unremarkable liver profile and urinalysis that is negative for nitrite and leukocyte esterase, positive for blood and ketones as well as bacteria and yeast. ASSESSMENT AND PLAN: Ms. Crowley is a pleasant 73-year-old lady who was seen at [facility] on February 17, 2019. Her problem list includes: 1. [id number] stage 3 renal failure: Ms. Crowley is presenting with [id number] stage 3 renal failure. She will receive gentle hydration and creatinine will be rechecked. 2. Hypertension: Once her home medications are clarified, they can be started. Vital signs will be checked and antihypertensives titrated as needed. 3. Fall: The patient has not sustained head trauma. However, she does complain of pain in both knees. On further questioning, this pain may have been present in the past, but is worse today. We will check bilateral knee x-rays. The patient's daughter is accompanying the patient, having come from [id number]. They are interested in placement. Case Management will be consulted for the same. Many thanks for allowing me to participate in your patient's care. Please feel free to contact me with any questions or concerns. LEVEL OF RISK: Moderate. LEVEL OF COMPLEXITY: Moderate. ADDENDUM: Ms. Crowley has leukocytosis. However, urinalysis is not suggestive of infection. She also had chest x-ray, which does not appear to show any pulmonary infiltrates. The official report is pending. At this point in time, I am not starting her on antibiotics. Job ID: [id number]
[2019-02-17] MEDS: Sodium Chloride 0.9% 1,000 ML IV SCH ×2 (05:45→20:45)
--- NOTE | 2019-02-17 08:28 | RAD ---
2 views left knee: 02/17/2019 COMPARISON: None HISTORY: Fall, pain FINDINGS: No fracture or dislocation. No radiopaque foreign body or subcutaneous gas. There is a left total knee arthroplasty. No evidence for hardware failure. IMPRESSION: No acute findings.
--- NOTE | 2019-02-17 08:30 | RAD ---
2 views right knee: 02/17/2019 COMPARISON: None HISTORY: Fall, pain FINDINGS: There is severe medial compartment and lateral compartment narrowing. There is severe mike lofemoral joint space narrowing. There is osteophyte formation involving the medial and lateral femoral condyle and tibial plateau as well as the posterior patella and the anterior aspect of the di stal right femur. No significant knee joint effusion. No displaced fracture or dislocation. IMPRESSION: Severe multicompartment degenerative joint disease.
--- NOTE | 2019-02-17 08:34 | RAD ---
Portable frontal chest radiograph: 02/17/2019 COMPARISON: 10/25/2018 HISTORY: Fall, pain FINDINGS: Lungs are clear. Heart and mediastinal contours appear within normal limits. Suture anchors overlie the right humeral head. IMPRESSION: No acute findings.
[2019-02-17] MEDS ORDERED: Levothyroxine Sodium 125 MCG TAB PO SCH (09:00)
--- NOTE | 2019-02-17 09:58 | PDOC.HOSPP ---
- Subjective Encounter Date: 02/17/19 Encounter Time: 08:15 Subjective: Patient seen and examined. No new complaints. No overnight events, pt does not like option of placement - Objective Vital Signs & Weight: Vital Signs (12 hours) Temp Pulse Resp BP BP Pulse Ox 02/17/19 07:06 97.8 F 97 19 135/74 95 02/17/19 03:45 97.9 F 82 20 168/75 H 91 L Weight Admit Weight 192 lb Weight 192 lb Result Diagrams: 02/17/19 01:12 02/17/19 01:12 Additional Labs: Accuchecks 02/17/19 07:23 POC Glucose 124 H Radiology Reviewed by me: Yes Hospitalist ROS - Review of Systems ENT: denies: ear pain, ear discharge, nose pain, nose discharge, nose congestion , mouth pain, mouth swelling, throat pain, throat swelling, other Respiratory: denies: cough, dry, shortness of breath, hemoptysis, SOB with excertion, pleuritic pain, sputum, wheezing, other Cardiovascular: denies: chest pain, palpitations, orthopnea, paroxysmal noc. dyspnea, edema, light headedness, other Gastrointestinal: denies: nausea, vomiting, abdominal pain, diarrhea, constipation, melena, hematochezia, other Genitourinary: denies: dysuria, frequency, incontinence, hematuria, retention, other Musculoskeletal: denies: neck pain, shoulder pain, arm pain, back pain, hand pain, leg pain, foot pain, other Skin: denies: rash, lesions, mak, bruising, other - Medication Medications: Active Medications Generic Name Dose Route Start Last Admin Trade Name Freq PRN Reason Stop Dose Admin Sodium Chloride 1,000 mls @ 70 mls/hr 02/17/19 05:00 02/17/19 05:45 Normal Saline 0.9% IV 1,000 mls .[id number] SHANNON Administration - Exam General Appearance: NAD, awake alert Eye: PERRL, anicteric sclera ENT: normocephalic atraumatic, no oropharyngeal lesions Neck: supple, symmetric, no JVD Heart: RRR, no murmur, no gallops, no rubs Respiratory: CTAB, no wheezes, no rales, no ronchi Gastrointestinal: soft, non-tender, non-distended, normal bowel sounds Extremities: no cyanosis, no clubbing Skin: normal turgor, no lesions Neurological: cranial nerve grossly intact, no focal deficits Musculoskeletal: normal tone, normal strength Psychiatric: normal affect, normal behavior Hosp A/P (1) UTI (urinary tract infection) Status: Acute Qualifiers: Urinary tract infection type: acute cystitis (2) Leukocytosis Code(s): D72.829 - ELEVATED WHITE BLOOD CELL COUNT, UNSPECIFIED Status: Resolved (3) Bipolar disease, chronic Code(s): F31.9 - BIPOLAR DISORDER, UNSPECIFIED Status: Chronic (4) DM type 2 (diabetes mellitus, type 2) Status: Chronic Qualifiers: Diabetes mellitus intermission coordinator insulin use: without intermission coordinator use Diabetes mellitus complication status: with unspecified complications (5) Dementia Code(s): F03.90 - UNSPECIFIED DEMENTIA WITHOUT BEHAVIORAL DISTURBANCE Status: Chronic Qualifiers: Dementia type: Alzheimer's disease Alzheimer's disease onset: unspecified onset Dementia behavioral disturbance: without behavioral disturbance Qualified Code(s): G30.9 - Alzheimer's disease, unspecified; F02.80 - Dementia in other diseases classified elsewhere without behavioral disturbance (6) Hypertension Code(s): I10 - ESSENTIAL (PRIMARY) HYPERTENSION Status: Chronic Qualifiers: Hypertension type: essential hypertension Qualified Code(s): I10 - Essential (primary) hypertension (7) h/o old cva Status: Chronic (8) Metabolic acidosis Code(s): E87.2 - ACIDOSIS Status: Acute (9) Acute worsening of stage 3 chronic kidney disease Code(s): N18.3 - CHRONIC KIDNEY DISEASE, STAGE 3 (MODERATE) Status: Acute - Plan old records reviewed/req, continue antibiotics 02/17/19 continue IVF repeat labs tomorrow consult PT add rocephin Home medication reconciled discharge planning medication reviewed as above symptomatic treatment skin care/wound care
[2019-02-17] MEDS: cefTRIAXone\\ROCEPHIN 1 GM in Sodium Chloride 0.9% 100 ML IVPB SCH (12:12)
[2019-02-17] MEDS: Amlodipine 5 MG TAB PO SCH (15:01)
[2019-02-17] MEDS: Oxybutynin 5 MG TAB PO SCH (15:02)
[2019-02-17] MEDS: Heparin 5,000 UNITS/ML VIAL SC SCH ×3 (15:02→20:47)
[2019-02-17] MEDS: Nystatin Cream 30 GM TUBE TOP SCH ×3 (15:02→20:45)
[2019-02-17] MEDS: Metamucil PACK PO PRN (16:49)
[2019-02-17] MEDS: Donepezil HCl 5 MG TAB PO SCH (20:44)
[2019-02-17] MEDS: Atorvastatin Calcium 40 MG TAB PO SCH (20:44)
[2019-02-17] MEDS: risperiDONE 0.25 MG TAB PO SCH (20:44)
[2019-02-17] MEDS: Lisinopril 20 MG TAB PO SCH (20:45)
[2019-02-17] MEDS: traZODone HCl 150 MG TAB PO SCH (20:45)
[2019-02-18 05:58] LABS: #Basophils 0.1 thou/uL (0.0-0.2); #Eosinphils 0.3 thou/uL (0.0-0.7); #Lymphocytes 2.5 thou/uL (1.20-3.40); #Monocytes 0.9 thou/uL (0.11-0.59); #Neutrophils 7.1 thou/uL (1.40-6.50); %Basophils 0.7 % (0.0-1.0); %Eosinophils 3.1 % (0.0-10.0); %Lymphocytes 23.2 % (21.0-51.0); %Monocytes 7.9 % (0.0-10.0); %Neutrophils 65.2 % (42.0-75.0); Mean Corpuscular HGB CONC 33.9 g/dL (32.0-36.0); Mean Corpuscular Hemoglobin 30.3 pg (27.0-31.0); Mean Corpuscular Volume 89.6 fL (78.0-98.0); Mean Platelet Volume 7.8 fL (7.4-10.4); Platelet Count 239 thou/uL (130-400); RBC Distribution Width 13.9 % (11.5-14.5); Red Blood Cell (RBC) Count 3.61 mill/uL (4.20-5.40); White Blood Cell (WBC) Count 10.8 thou/uL (4.8-10.8)
[2019-02-18] MEDS: Levothyroxine Sodium 125 MCG TAB PO SCH (06:10)
[2019-02-18 06:16] LABS: Anion Gap 13 mmol/L (10-20); BUN (Urea Nitrogen) 23 mg/dL (9.8-20.1); Calc. Creatinine Clearance 42 mL/min (70-130); Calcium 8.1 mg/dL (7.8-10.44); Carbon Dioxide 22 mmol/L (23-31); Chloride 110 mmol/L (98-107); Estimated GFR-MDRD 30; Glucose 130 mg/dL (83-110); Potassium 4.1 mmol/L (3.5-5.1); Sodium 141 mmol/L (136-145)
[2019-02-18] MEDS: Amlodipine 5 MG TAB PO SCH (08:36)
[2019-02-18] MEDS: Oxybutynin 5 MG TAB PO SCH (08:36)
[2019-02-18] MEDS: Sodium Chloride 0.9% 1,000 ML IV SCH (08:37)
[2019-02-18] MEDS: cefTRIAXone\\ROCEPHIN 1 GM in Sodium Chloride 0.9% 100 ML IVPB SCH (08:37)
[2019-02-18] MEDS: Nystatin Cream 30 GM TUBE TOP SCH ×3 (08:38→20:02)
--- NOTE | 2019-02-18 12:33 | PDOC.HOSPP ---
- Subjective Encounter Date: 02/18/19 Encounter Time: 08:30 Subjective: Patient seen and examined. No new complaints. No overnight events - Objective Vital Signs & Weight: Vital Signs (12 hours) Temp Pulse Resp BP Pulse Ox 02/18/19 08:36 74 02/18/19 07:39 97.7 F 74 20 125/73 90 L 02/18/19 04:00 97.9 F 79 18 130/74 94 L Weight Admit Weight 192 lb Weight 192 lb I&O: 02/17/19 02/18/19 02/19/19 06:59 06:59 06:59 Intake Total 1320 Balance 1320 Result Diagrams: 02/18/19 04:58 02/18/19 04:58 Additional Labs: Accuchecks 02/17/19 02/17/19 15:45 11:50 POC Glucose 131 H 135 H Hospitalist ROS - Review of Systems Eyes: denies: pain, vision change, conjunctivae inflammation, eyelid inflammation, redness, other ENT: denies: ear pain, ear discharge, nose pain, nose discharge, nose congestion , mouth pain, mouth swelling, throat pain, throat swelling, other Respiratory: denies: cough, dry, shortness of breath, hemoptysis, SOB with excertion, pleuritic pain, sputum, wheezing, other Cardiovascular: denies: chest pain, palpitations, orthopnea, paroxysmal noc. dyspnea, edema, light headedness, other Gastrointestinal: denies: nausea, vomiting, abdominal pain, diarrhea, constipation, melena, hematochezia, other Genitourinary: denies: dysuria, frequency, incontinence, hematuria, retention, other Musculoskeletal: denies: neck pain, shoulder pain, arm pain, back pain, hand pain, leg pain, foot pain, other Skin: denies: rash, lesions, mak, bruising, other - Medication Medications: Active Medications Generic Name Dose Route Start Last Admin Trade Name Freq PRN Reason Stop Dose Admin Amlodipine Besylate 5 mg 02/17/19 09:00 02/18/19 08:36 Norvasc PO 5 mg DAILY SHANNON Administration Atorvastatin Calcium 40 mg 02/17/19 21:00 02/17/19 20:44 Lipitor PO 40 mg HS SHANNON Administration Cholecalciferol 4,000 units 02/17/19 12:00 02/18/19 08:36 Vitamin D3 PO 4,000 units 1200 SHANNON Administration Donepezil HCl 5 mg 02/17/19 21:00 02/17/19 20:44 Aricept PO 5 mg HS SHANNON Administration Heparin Sodium (Porcine) 5,000 units 02/17/19 09:00 02/17/19 20:47 Heparin SC Not Given TID SHANNON Sodium Chloride 1,000 mls @ 70 mls/hr 02/17/19 05:00 02/18/19 08:37 Normal Saline 0.9% IV 1,000 mls .[id number] SHANNON Administration Ceftriaxone Sodium 1 gm/ 100 mls @ 200 mls/hr 02/17/19 11:00 02/18/19 08:37 Sodium Chloride IVPB 100 mls 1100 SHANNON Administration Levothyroxine Sodium 125 mcg 02/18/19 06:00 02/18/19 06:10 Synthroid PO 125 mcg 0600 SHANNON Administration Lisinopril 20 mg 02/17/19 21:00 02/17/19 20:45 Zestril PO 20 mg HS SHANNON Administration Nystatin 1 gm 02/17/19 09:00 02/18/19 08:38 Mycostatin Cream TOP 1 gm TID SHANNON Administration Oxybutynin Chloride 5 mg 02/17/19 09:00 02/18/19 08:36 Ditropan PO 5 mg DAILY SHANNON Administration Psyllium Hydrophilic Mucilloid 1 pk 02/17/19 16:42 02/17/19 16:49 Metamucil PO 1 pk DAILY PRN Administration Constipation Risperidone 0.5 mg 02/17/19 21:00 02/17/19 20:44 Risperidone PO 0.5 mg HS SHANNON Administration Trazodone HCl 150 mg 02/17/19 21:00 02/17/19 20:45 Desyrel PO 150 mg HS SHANNON Administration - Exam General Appearance: NAD, awake alert Eye: PERRL, anicteric sclera ENT: normocephalic atraumatic, no oropharyngeal lesions Neck: supple, symmetric, no JVD, no thyromegaly Heart: RRR, no murmur, no gallops, no rubs Respiratory: CTAB, no wheezes, no rales, no ronchi Gastrointestinal: soft, non-tender, non-distended, normal bowel sounds Extremities: no cyanosis, no clubbing, no edema Skin: normal turgor, no lesions Neurological: cranial nerve grossly intact, no focal deficits Musculoskeletal: normal tone, normal strength Psychiatric: normal affect, normal behavior Hosp A/P (1) UTI (urinary tract infection) Status: Acute Qualifiers: Urinary tract infection type: acute cystitis (2) Leukocytosis Code(s): D72.829 - ELEVATED WHITE BLOOD CELL COUNT, UNSPECIFIED Status: Resolved (3) Bipolar disease, chronic Code(s): F31.9 - BIPOLAR DISORDER, UNSPECIFIED Status: Chronic (4) DM type 2 (diabetes mellitus, type 2) Status: Chronic Qualifiers: Diabetes mellitus usp insulin use: without usp use Diabetes mellitus complication status: with unspecified complications (5) Dementia Code(s): F03.90 - UNSPECIFIED DEMENTIA WITHOUT BEHAVIORAL DISTURBANCE Status: Chronic Qualifiers: Dementia type: Alzheimer's disease Alzheimer's disease onset: unspecified onset Dementia behavioral disturbance: without behavioral disturbance Qualified Code(s): G30.9 - Alzheimer's disease, unspecified; F02.80 - Dementia in other diseases classified elsewhere without behavioral disturbance (6) Hypertension Code(s): I10 - ESSENTIAL (PRIMARY) HYPERTENSION Status: Chronic Qualifiers: Hypertension type: essential hypertension Qualified Code(s): I10 - Essential (primary) hypertension (7) h/o old cva Status: Chronic (8) Metabolic acidosis Code(s): E87.2 - ACIDOSIS Status: Resolved (9) Acute worsening of stage 3 chronic kidney disease Code(s): N18.3 - CHRONIC KIDNEY DISEASE, STAGE 3 (MODERATE) Status: Resolved - Plan old records reviewed/req, plan discussed w/ family, continue antibiotics, PT/OT , psychotherapist social worker 02/17/19 continue IVF repeat labs tomorrow consult PT add rocephin Home medication reconciled discharge planning medication reviewed as above symptomatic treatment skin care/wound care 02/18/19 pt needs [facility] placement continue rocephin discussed with daughter who wants her to go to snu
[2019-02-18] MEDS: Heparin 5,000 UNITS/ML VIAL SC SCH ×2 (17:09→20:03)
[2019-02-18] MEDS: Atorvastatin Calcium 40 MG TAB PO SCH (20:01)
[2019-02-18] MEDS: Lisinopril 20 MG TAB PO SCH (20:01)
[2019-02-18] MEDS: Donepezil HCl 5 MG TAB PO SCH (20:01)
[2019-02-18] MEDS: risperiDONE 0.25 MG TAB PO SCH (20:02)
[2019-02-18] MEDS: traZODone HCl 150 MG TAB PO SCH (21:41)
[2019-02-19] MEDS: Sodium Chloride 0.9% 1,000 ML IV SCH ×3 (01:01→14:09)
[2019-02-19] MEDS: Levothyroxine Sodium 125 MCG TAB PO SCH (05:19)
[2019-02-19] MEDS: Amlodipine 5 MG TAB PO SCH (07:50)
[2019-02-19] MEDS: Heparin 5,000 UNITS/ML VIAL SC SCH ×3 (07:52→20:19)
[2019-02-19] MEDS: Oxybutynin 5 MG TAB PO SCH (07:52)
[2019-02-19] MEDS: Nystatin Cream 30 GM TUBE TOP SCH ×3 (07:52→20:23)
--- NOTE | 2019-02-19 11:11 | PDOC.HOSPP ---
- Subjective Encounter Date: 02/19/19 Encounter Time: 08:45 Subjective: Patient seen and examined. No new complaints. No overnight events - Objective Vital Signs & Weight: Vital Signs (12 hours) Temp Pulse Resp BP BP BP Pulse Ox 02/19/19 08:13 97.4 F L 81 16 130/74 93 L 02/19/19 07:50 81 130/74 02/19/19 03:49 98.3 F 81 20 140/77 92 L 02/19/19 02:25 93 L 02/19/19 00:00 97.7 F 75 20 131/76 93 L Weight Admit Weight 192 lb Weight 192 lb I&O: 02/18/19 02/19/19 02/20/19 06:59 06:59 06:59 Intake Total 1320 2650 Balance 1320 2650 Result Diagrams: 02/18/19 04:58 02/18/19 04:58 Hospitalist ROS - Review of Systems ENT: denies: ear pain, ear discharge, nose pain, nose discharge, nose congestion , mouth pain, mouth swelling, throat pain, throat swelling, other Respiratory: denies: cough, dry, shortness of breath, hemoptysis, SOB with excertion, pleuritic pain, sputum, wheezing, other Cardiovascular: denies: chest pain, palpitations, orthopnea, paroxysmal noc. dyspnea, edema, light headedness, other Gastrointestinal: denies: nausea, vomiting, abdominal pain, diarrhea, constipation, melena, hematochezia, other Genitourinary: denies: dysuria, frequency, incontinence, hematuria, retention, other Musculoskeletal: denies: neck pain, shoulder pain, arm pain, back pain, hand pain, leg pain, foot pain, other Skin: denies: rash, lesions, mak, bruising, other - Medication Medications: Active Medications Generic Name Dose Route Start Last Admin Trade Name Freq PRN Reason Stop Dose Admin Amlodipine Besylate 5 mg 02/17/19 09:00 02/19/19 07:50 Norvasc PO 5 mg DAILY SHANNON Administration Atorvastatin Calcium 40 mg 02/17/19 21:00 02/18/19 20:01 Lipitor PO 40 mg HS SHANNON Administration Cholecalciferol 4,000 units 02/17/19 12:00 02/18/19 08:36 Vitamin D3 PO 4,000 units 1200 SHANNON Administration Donepezil HCl 5 mg 02/17/19 21:00 02/18/19 20:01 Aricept PO 5 mg HS SHANNON Administration Heparin Sodium (Porcine) 5,000 units 02/17/19 09:00 02/19/19 07:52 Heparin SC 5,000 units TID SHANNON Administration Sodium Chloride 1,000 mls @ 70 mls/hr 02/17/19 05:00 02/19/19 07:49 Normal Saline 0.9% IV 1,000 mls .[id number] SHANNON Administration Ceftriaxone Sodium 1 gm/ 100 mls @ 200 mls/hr 02/17/19 11:00 02/18/19 08:37 Sodium Chloride IVPB 100 mls 1100 SHANNON Administration Levothyroxine Sodium 125 mcg 02/18/19 06:00 02/19/19 05:19 Synthroid PO 125 mcg 0600 SHANNON Administration Lisinopril 20 mg 02/17/19 21:00 02/18/19 20:01 Zestril PO 20 mg HS SHANNON Administration Nystatin 1 gm 02/17/19 09:00 02/19/19 07:52 Mycostatin Cream TOP 1 gm TID SHANNON Administration Oxybutynin Chloride 5 mg 02/17/19 09:00 02/19/19 07:52 Ditropan PO 5 mg DAILY SHANNON Administration Psyllium Hydrophilic Mucilloid 1 pk 02/17/19 16:42 02/17/19 16:49 Metamucil PO 1 pk DAILY PRN Administration Constipation Risperidone 0.5 mg 02/17/19 21:00 02/18/19 20:02 Risperidone PO 0.5 mg HS SHANNON Administration Trazodone HCl 150 mg 02/17/19 21:00 02/18/19 21:41 Desyrel PO 150 mg HS SHANNON Administration - Exam General Appearance: NAD, awake alert Eye: PERRL, anicteric sclera ENT: normocephalic atraumatic, no oropharyngeal lesions Neck: supple, symmetric, no JVD, no thyromegaly Heart: RRR, no murmur, no gallops, no rubs Respiratory: CTAB, no wheezes, no rales, no ronchi Gastrointestinal: soft, non-tender, non-distended, normal bowel sounds, no palpable masses, no hepatomegaly Extremities: no cyanosis, no clubbing Skin: normal turgor, no lesions Neurological: cranial nerve grossly intact, no focal deficits Musculoskeletal: normal tone, normal strength Psychiatric: normal affect, normal behavior Hosp A/P (1) UTI (urinary tract infection) Status: Acute Qualifiers: Urinary tract infection type: acute cystitis (2) Leukocytosis Code(s): D72.829 - ELEVATED WHITE BLOOD CELL COUNT, UNSPECIFIED Status: Resolved (3) Bipolar disease, chronic Code(s): F31.9 - BIPOLAR DISORDER, UNSPECIFIED Status: Chronic (4) DM type 2 (diabetes mellitus, type 2) Status: Chronic Qualifiers: Diabetes mellitus terminologist insulin use: without terminologist use Diabetes mellitus complication status: with unspecified complications (5) Dementia Code(s): F03.90 - UNSPECIFIED DEMENTIA WITHOUT BEHAVIORAL DISTURBANCE Status: Chronic Qualifiers: Dementia type: Alzheimer's disease Alzheimer's disease onset: unspecified onset Dementia behavioral disturbance: without behavioral disturbance Qualified Code(s): G30.9 - Alzheimer's disease, unspecified; F02.80 - Dementia in other diseases classified elsewhere without behavioral disturbance (6) Hypertension Code(s): I10 - ESSENTIAL (PRIMARY) HYPERTENSION Status: Chronic Qualifiers: Hypertension type: essential hypertension Qualified Code(s): I10 - Essential (primary) hypertension (7) h/o old cva Status: Chronic (8) Metabolic acidosis Code(s): E87.2 - ACIDOSIS Status: Resolved (9) Acute worsening of stage 3 chronic kidney disease Code(s): N18.3 - CHRONIC KIDNEY DISEASE, STAGE 3 (MODERATE) Status: Resolved - Plan old records reviewed/req, PT/OT, psychosocial rehabilitation counselor 02/17/19 continue IVF repeat labs tomorrow consult PT add rocephin Home medication reconciled discharge planning medication reviewed as above symptomatic treatment skin care/wound care 02/18/19 pt needs snu placement continue rocephin discussed with daughter who wants her to go to snu 02/19/19 pt is immbolie at home, and she does not have anybody with her at home and she can not do her daily activity of life, her is also in hospital and he also not in good shape, so she will likely will need terminologist placement, case management rn is working on that
[2019-02-19] MEDS: cefTRIAXone\\ROCEPHIN 1 GM in Sodium Chloride 0.9% 100 ML IVPB SCH (12:03)
[2019-02-19] MEDS: Lisinopril 20 MG TAB PO SCH (20:17)
[2019-02-19] MEDS: Atorvastatin Calcium 40 MG TAB PO SCH (20:17)
[2019-02-19] MEDS: risperiDONE 0.25 MG TAB PO SCH (20:17)
[2019-02-19] MEDS: Donepezil HCl 5 MG TAB PO SCH (20:19)
[2019-02-19] MEDS: traZODone HCl 150 MG TAB PO SCH (22:18)
[2019-02-20] MEDS: Sodium Chloride 0.9% 1,000 ML IV SCH (04:51)
[2019-02-20] MEDS: Levothyroxine Sodium 125 MCG TAB PO SCH (05:37)
[2019-02-20] MEDS: Amlodipine 5 MG TAB PO SCH (08:06)
[2019-02-20] MEDS: Heparin 5,000 UNITS/ML VIAL SC SCH ×3 (08:07→20:02)
[2019-02-20] MEDS: Nystatin Cream 30 GM TUBE TOP SCH ×3 (08:07→20:02)
[2019-02-20] MEDS: Oxybutynin 5 MG TAB PO SCH (08:07)
[2019-02-20] MEDS: cefTRIAXone\\ROCEPHIN 1 GM in Sodium Chloride 0.9% 100 ML IVPB SCH (10:55)
--- NOTE | 2019-02-20 11:43 | PDOC.HOSPP ---
- Subjective Encounter Date: 02/20/19 Encounter Time: 09:30 Subjective: Patient seen and examined. No new complaints. No overnight events - Objective Vital Signs & Weight: Vital Signs (12 hours) Temp Pulse Resp BP BP BP Pulse Ox 02/20/19 08:11 97.9 F 72 18 138/73 94 L 02/20/19 08:06 72 138/73 02/20/19 04:00 98.3 F 89 20 142/80 H 95 02/20/19 00:05 16 Weight Admit Weight 192 lb Weight 192 lb I&O: 02/19/19 02/20/19 02/21/19 06:59 06:59 06:59 Intake Total 2650 1770 Balance 2650 1770 Result Diagrams: 02/18/19 04:58 02/18/19 04:58 Hospitalist ROS - Review of Systems Eyes: denies: pain, vision change, conjunctivae inflammation, eyelid inflammation, redness, other ENT: denies: ear pain, ear discharge, nose pain, nose discharge, nose congestion , mouth pain, mouth swelling, throat pain, throat swelling, other Respiratory: denies: cough, dry, shortness of breath, hemoptysis, SOB with excertion, pleuritic pain, sputum, wheezing, other Cardiovascular: denies: chest pain, palpitations, orthopnea, paroxysmal noc. dyspnea, edema, light headedness, other Gastrointestinal: denies: nausea, vomiting, abdominal pain, diarrhea, constipation, melena, hematochezia, other Genitourinary: denies: dysuria, frequency, incontinence, hematuria, retention, other Musculoskeletal: denies: neck pain, shoulder pain, arm pain, back pain, hand pain, leg pain, foot pain, other Skin: denies: rash, lesions, mak, bruising, other - Medication Medications: Active Medications Generic Name Dose Route Start Last Admin Trade Name Freq PRN Reason Stop Dose Admin Amlodipine Besylate 5 mg 02/17/19 09:00 02/20/19 08:06 Norvasc PO 5 mg DAILY SHANNON Administration Atorvastatin Calcium 40 mg 02/17/19 21:00 02/19/19 20:17 Lipitor PO 40 mg HS SHANNON Administration Cholecalciferol 4,000 units 02/17/19 12:00 02/19/19 12:02 Vitamin D3 PO 4,000 units 1200 SHANNON Administration Donepezil HCl 5 mg 02/17/19 21:00 02/19/19 20:19 Aricept PO 5 mg HS SHANNON Administration Heparin Sodium (Porcine) 5,000 units 02/17/19 09:00 02/20/19 08:07 Heparin SC 5,000 units TID SHANNON Administration Ceftriaxone Sodium 1 gm/ 100 mls @ 200 mls/hr 02/17/19 11:00 02/20/19 10:55 Sodium Chloride IVPB Not Given 1100 [facility] Levothyroxine Sodium 125 mcg 02/18/19 06:00 02/20/19 05:37 Synthroid PO 125 mcg 0600 SHANNON Administration Lisinopril 20 mg 02/17/19 21:00 02/19/19 20:17 Zestril PO 20 mg HS SHANNON Administration Nystatin 1 gm 02/17/19 09:00 02/20/19 08:07 Mycostatin Cream TOP 1 gm TID SHANNON Administration Oxybutynin Chloride 5 mg 02/17/19 09:00 02/20/19 08:07 Ditropan PO 5 mg DAILY SHANNON Administration Psyllium Hydrophilic Mucilloid 1 pk 02/17/19 16:42 02/17/19 16:49 Metamucil PO 1 pk DAILY PRN Administration Constipation Risperidone 0.5 mg 02/17/19 21:00 02/19/19 20:17 Risperidone PO 0.5 mg HS SHANNON Administration Trazodone HCl 150 mg 02/17/19 21:00 02/19/19 22:18 Desyrel PO 150 mg HS SHANNON Administration - Exam General Appearance: NAD, awake alert Eye: PERRL, anicteric sclera ENT: normocephalic atraumatic, no oropharyngeal lesions Neck: supple, symmetric, no JVD Heart: RRR, no murmur Respiratory: CTAB, no wheezes, no rales, no ronchi Gastrointestinal: soft, non-tender, non-distended, normal bowel sounds Extremities: no cyanosis, no clubbing, no edema Skin: normal turgor, no lesions Neurological: cranial nerve grossly intact, no focal deficits Musculoskeletal: normal tone, generalized weakness Psychiatric: normal affect, normal behavior Hosp A/P (1) UTI (urinary tract infection) Status: Acute Qualifiers: Urinary tract infection type: acute cystitis (2) Leukocytosis Code(s): D72.829 - ELEVATED WHITE BLOOD CELL COUNT, UNSPECIFIED Status: Resolved (3) Bipolar disease, chronic Code(s): F31.9 - BIPOLAR DISORDER, UNSPECIFIED Status: Chronic (4) DM type 2 (diabetes mellitus, type 2) Status: Chronic Qualifiers: Diabetes mellitus watcher autom[employer] insulin use: without shelter use Diabetes mellitus complication status: with unspecified complications (5) Dementia Code(s): F03.90 - UNSPECIFIED DEMENTIA WITHOUT BEHAVIORAL DISTURBANCE Status: Chronic Qualifiers: Dementia type: Alzheimer's disease Alzheimer's disease onset: unspecified onset Dementia behavioral disturbance: without behavioral disturbance Qualified Code(s): G30.9 - Alzheimer's disease, unspecified; F02.80 - Dementia in other diseases classified elsewhere without behavioral disturbance (6) Hypertension Code(s): I10 - ESSENTIAL (PRIMARY) HYPERTENSION Status: Chronic Qualifiers: Hypertension type: essential hypertension Qualified Code(s): I10 - Essential (primary) hypertension (7) h/o old cva Status: Chronic (8) Metabolic acidosis Code(s): E87.2 - ACIDOSIS Status: Resolved (9) Acute worsening of stage 3 chronic kidney disease Code(s): N18.3 - CHRONIC KIDNEY DISEASE, STAGE 3 (MODERATE) Status: Resolved - Plan old records reviewed/req, continue antibiotics, social media coordinator 02/17/19 continue IVF repeat labs tomorrow consult PT add rocephin Home medication reconciled discharge planning medication reviewed as above symptomatic treatment skin care/wound care 02/18/19 pt needs snu placement continue rocephin discussed with daughter who wants her to go to snu 02/19/19 pt is immbolie at home, and she does not have anybody with her at home and she can not do her daily activity of life, her is also in hospital and he also not in good shape, so she will likely will need watcher [employer] placement, case specialist is working on that 02/20/19 will change rocephin to macrobid for now medication reviewed as above symptomatic treatment await placement to snu
--- NOTE | 2019-02-20 12:46 | DIS ---
DATE OF ADMISSION: 02/17/2019 DATE OF DISCHARGE: 02/20/2019 DISCHARGE DISPOSITION: Correction/Assisted Living Facility. PRIMARY DISCHARGE DIAGNOSES: Functional quadriplegia; acute on chronic kidney failure; baseline chronic kidney disease stage 3; urinary tract infection, treated while in hospital; leukocytosis, resolved; metabolic acidosis, resolved. SECONDARY DISCHARGE DIAGNOSES: Hypertension, diabetes type 2, chronic kidney disease stage 3. PRIMARY PROCEDURE/OPERATION: None. RADIOLOGICAL INVESTIGATION: Chest x-ray, knee x-ray. SIGNIFICANT LABORATORY DATA: WBC 10.8, hemoglobin 11.0, platelet 239. Sodium 141, creatinine 1.68, calcium 8.1. LFT normal. Urinalysis suggestive of UTI. DISCHARGE MEDICATIONS: 1. Conjugated estrogen 0.625 mg p.o. daily. 2. Lisinopril 20 mg p.o. daily. 3. Oxybutynin 5 mg p.o. daily. 4. Risperidone 0.5 mg p.o. at bedtime. 5. Trazodone 150 mg p.o. at bedtime. CONTRAINDICATION: None. CODE STATUS: Full code. INPATIENT CONSULT: None. ALLERGIES: NO KNOWN DRUG ALLERGIES. DISCHARGE PLAN: Posthospital, the patient will follow up with primary care physician. HOSPITAL COURSE: A 73-year-old female who is not able to do her routine activity of life by herself because of functional quadriplegia and she was found in bad environmental home situation. APS report was done. The patient was found to be . She had acute on chronic kidney failure and urinary tract infection. Her urinary tract infection was treated hospital for 3 days. Her leukocytosis resolved. Her renal function improved to baseline with hydration. advertising manager was consulted for her discharge planning and subsequently, the patient is planned for discharge to assisted living facility. Job ID: [id number] [facility]
[2019-02-20] MEDS: Metamucil PACK PO PRN (17:31)
[2019-02-20] MEDS: Lisinopril 20 MG TAB PO SCH (20:01)
[2019-02-20] MEDS: Donepezil HCl 5 MG TAB PO SCH (20:01)
[2019-02-20] MEDS: Nitrofurantoin Monohyd/M-Cryst 100 MG CAP PO SCH (20:01)
[2019-02-20] MEDS: risperiDONE 0.25 MG TAB PO SCH (20:01)
[2019-02-20] MEDS: Atorvastatin Calcium 40 MG TAB PO SCH (20:02)
[2019-02-20] MEDS: traZODone HCl 150 MG TAB PO SCH (22:49)
[2019-02-21] MEDS: Levothyroxine Sodium 125 MCG TAB PO SCH (05:59)
[2019-02-21 07:29] VITALS: BP 155/76; TEMP 98
[2019-02-21] MEDS: Heparin 5,000 UNITS/ML VIAL SC SCH (08:37)
[2019-02-21] MEDS: Nystatin Cream 30 GM TUBE TOP SCH (08:37)
[2019-02-21] MEDS: Nitrofurantoin Monohyd/M-Cryst 100 MG CAP PO SCH (08:37)
[2019-02-21] MEDS: Oxybutynin 5 MG TAB PO SCH (08:37)
[2019-02-21] MEDS: Amlodipine 5 MG TAB PO SCH (08:37)
--- NOTE | 2019-02-21 08:53 | PDOC.EVN ---
Event Note - Event Note Event Note: patint DC delayed overnite. alert, VSS, ok to DC to SNF
--- NOTE | 2019-02-21 09:10 | DIS ---
DATE OF ADMISSION: 02/17/2019 DATE OF DISCHARGE: 02/21/2019 ADDENDUM: The patient's discharge was delayed from 02/20/2019 until 02/21/2019 for compassionate reasons. The patient is alert. Vital signs and cardiorespiratory exam stable. She is being discharged to assisted facility. All things in previous dictated discharge summary per Dr. Faiza Schulz are pertinent. Job ID: [id number]
== END 2019-02-21 09:40 ==
LOC: ERS 00:46 → T4-A 03:01
PROVIDERS: ADMIT Internal Medicine; ATTEND Internal Medicine
DX: I12.9 Hypertensive chronic kidney disease with stage 1 through stage 4 chronic kidney disease, or unspecified chronic kidney disease (principal); E11.22 Type 2 diabetes mellitus with diabetic chronic kidney disease; N18.3 Chronic kidney disease, stage 3 (moderate); N17.9 Acute kidney failure, unspecified; R53.2 Functional quadriplegia; N30.00 Acute cystitis without hematuria; E11.10 Type 2 diabetes mellitus with ketoacidosis without coma; M25.562 Pain in left knee; R21 Rash and other nonspecific skin eruption; F31.9 Bipolar disorder, unspecified; D72.829 Elevated white blood cell count, unspecified; G30.9 Alzheimer's disease, unspecified; F02.80 Dementia in other diseases classified elsewhere, unspecified severity, without behavioral disturbance, psychotic disturbance, mood disturbance, and anxiety; M17.11 Unilateral primary osteoarthritis, right knee; G89.29 Other chronic pain; M54.9 Dorsalgia, unspecified; T76.01XA Adult neglect or abandonment, suspected, initial encounter; Z68.29 Body mass index [BMI] 29.0-29.9, adult; Z86.73 Personal history of transient ischemic attack (TIA), and cerebral infarction without residual deficits; Z79.899 Other long term (current) drug therapy
CPT/HCPCS: 51701; 71045; 73560 ×2; 80048; 80053; 82962; 85025 ×2; 96361 ×3; 96366 ×2; 96367; 96372 ×4; 97110 ×2; 97139 ×7; 97542 ×2; 99284; G0378 ×6; 36415; 36416; 81003; 81015; J0696; J1644; J3490